=== PATIENT | male | born 1940 | race Caucasian/White ===

== ENCOUNTER → 2018-09-29 15:37 | Outpatient (CLI) | payer MEDICARE, OTHER, SELFPAY ==
--- NOTE | 2018-09-29 15:41 | DI.RAD.S_ITS ---
PROCEDURE: XR HAND RT MIN 3V INDICATIONS: thumb pain x 1month post fall. TECHNIQUE: 3 views of the hand(s) acquired. COMPARISON: None. FINDINGS: Bones: No fractures or dislocations. Carpal bones are normally aligned. No suspicious bony lesions. Small osseous densities are noted volar to the first carpal row. There is osteopenia. Mild to moderate degenerative joint disease is present at the triscaphe joint, first metacarpal joint and multiple interphalangeal joints. Soft tissues: No suspicious soft tissue calcifications. IMPRESSION: 1. No definitive fractures. 2. Small osseous densities volar to the first carpal row, most likely secondary to old injury or degenerative changes. If there is focal pain and tenderness in the area and clinical suspicion for pathology is high, advanced imaging such as CT or MRI is suggested for further evaluation. 3. Mild degenerative joint disease. 4. Osteopenia. Dictated by: Wayne Bryant M.D. on 09/29/2018 at 16:11 Approved by: Wayne Bryant M.D. on 09/29/2018 at 16:16
== END ==
PROVIDERS: Visit Provider Physician Assistant
DX: M79.644 Pain in right finger(s) (principal); M19.041 Primary osteoarthritis, right hand; M19.031 Primary osteoarthritis, right wrist; M85.841 Other specified disorders of bone density and structure, right hand
CPT/HCPCS: 73130

== ENCOUNTER 2019-02-04 12:46 | Emergency (ER) | payer MEDICARE, OTHER, SELFPAY ==
[2019-02-04 12:50] VITALS: BP 224/86; PULSE 51; RESP 20; TEMP 36.7; O2SAT 100; BMI 20.7
[2019-02-04] MEDS: PROPARACAINE 0.5% OPHTH SOL 1 DROPS EYE-BOTH (13:19)
--- NOTE | 2019-02-04 13:30 | DI.CT.S_ITS ---
PROCEDURE: CT HEAD/BRAIN WO CON INDICATIONS: right sided headache with vision changes for 2 weeks TECHNIQUE: Noncontrast 4.5 mm thick angled axial sections acquired from the foramen magnum to the vertex, with coronal and sagittal reformats. For radiation dose reduction, the following was used: automated exposure control, adjustment of mA and/or kV according to patient size. COMPARISON: None. FINDINGS: Image quality: Diagnostic. CSF spaces: Basal cisterns are patent. No extra-axial fluid collections. Ventricles are mildly prominent. Brain: No midline shift. No intracranial masses or hemorrhage. Parsons-white matter interface is normal. Subtle areas of low attenuation are seen within the periventricular white matter of the supratentorial brain. Skull and face: Calvarium and visualized facial bones are intact, without suspicious lesions. Sinuses: Visualized sinuses and mastoids are clear. IMPRESSION: 1. No acute intracranial hemorrhage. 2. Mild chronic small vessel ischemic changes and parenchymal volume loss. Dictated by: Tio Chang M.D. on 02/04/2019 at 13:01 Approved by: Tio Chang M.D. on 02/04/2019 at 13:03
--- NOTE | 2019-02-04 13:34 | ED_ITS ---
HPI - Headache General Chief Complaint: Headache Stated Complaint: pressure and headache in lt eye/surg 2wks ago Time Seen by Provider: 02/04/19 12:50 Source: patient Mode of arrival: ambulatory Limitations: no limitations History of Present Illness HPI Narrative: Patient is a 78-year-old male who presents with right eye pain. He had cataract surgery 2 weeks ago and Charly fill with Dr. Paz he says he had some pain and discomfort afterwards he had a follow-up appointment he was told that he had a retinal hemorrhage however he has had persistent ongoing pain and blurriness. His eye now looks injected. He has a right-sided headache as well with significantly elevated blood pressure. He says he is supposed to take 3 blood pressure pills but has not taken any. He has no numbness tingling or weakness no difficulty speaking or facial droop. He has no chest pain or shortness no nausea or vomiting. MD Complaint: headache and other (right eye pain) Location: right Related Data Home Medications Medication Instructions Recorded Confirmed oxycodone 10 mg tablet,crush 10 mg PO Q12H 09/29/18 09/29/18 resistant,extended release 12 hr oxycodone 5 mg tablet 5 mg PO Q4-6H PRN 09/29/18 09/29/18 Allergies Allergy/AdvReac Type Severity Reaction Status Date / Time aspirin AdvReac Severe Ulcer Verified 09/29/18 15:23 Review of Systems Review of Systems ROS Unobtainable: All systems reviewed & are unremarkable except as noted in HPI and below Constitutional Constitutional: Denies chills, Denies fever(s), Reports headache(s), Denies lethargy and Denies weakness Eyes Eyes: Reports as per HPI, Reports seeing flashes and Reports photophobia ENT Ears, Nose, Mouth, and Throat: Reports headache(s) Cardiovascular Cardiovascular: Denies chest pain, Denies irregular heart rhythm, Denies l ightheadedness, Denies palpitations and Denies orthopnea Gastrointestinal Gastrointestinal: Denies abdominal pain, Denies change in bowel habits, Denies diarrhea, Denies nausea and Denies vomiting Genitourinary Genitourinary: Denies hematuria, Denies flank pain, Denies urinary incontinence and Denies urinary urgency Musculoskeletal Musculoskeletal: Denies back pain, Denies muscle weakness, Denies numbness and Denies tingling Integumentary/Breasts Skin/Breast: Denies pruritus, Denies erythema, Denies rash and Denies wounds Neurologic Neurologic: Reports headache(s), Denies numbness, Denies tingling and Denies weakness Endocrine Endocrine: Denies palpitations [facility] [place] Medical History Diabetes (Acute) Hypertension (Acute) Social History Smoking Status: Former smoker Social History Smoking Status: Former smoker Exam Initial Vital Signs Initial Vital Signs: Vital Signs Temperature 98.1 F 02/04/19 12:50 Pulse Rate 51 L 02/04/19 12:50 Respiratory Rate 20 02/04/19 12:50 Blood Pressure 224/86 H 02/04/19 12:50 Pulse Oximetry 100 02/04/19 12:50 GENERAL: Alert elderly male HEENT: Head atraumatic,EOMI, pupils reactive, face symmetric, moist mucous membranes EYES: Left eye pressure 45 mg of mercury, right eye pressure 23 mg of mercury. Both eye stained with fluorescein no dye uptake. Right eye is injected but no gross discharge. He is able to distinguish number of fingers held up in front of his eye. But he states it is blurry. Good red reflex. CARDIOVASCULAR: Regular rate and rhythm without murmurs, rubs or gallops. RESPIRATORY: Breath sounds equal bilaterally, no wheezes rales or rhonchi. ABDOMEN: Soft, nontender. Normoactive bowel sounds all 4 quadrants. No guardi ng or rebound. EXTREMITIES: Normal range of motion, no clubbing or edema. Neurovascularly intact NEUROLOGICAL: Alert and oriented x4.Normal gait and speech. Cranial nerves II through XII grossly intact. Good [id number], good [id number], strength equal bilaterally, no dysarthria or aphasia, sensation in tact to soft touch bilaterally, no visual changes, no facial droop SKIN: Warm, dry, no laceration, no petechiae, no rashes or lesions. Scores NIH Stroke Scale Level of Conciousness: Alert, keenly responsive Ask month/age: Answers both questions correctly. Open/close eyes, close hand: Performs both tasks correctly Best gaze horizontal: Normal Visual villalta: No visual loss Facial palsy: Normal symetrical movement Left arm drift: No drift for full 10 sec Right arm drift: No drift for full 10 sec Left leg drift: No drift for full 10 sec Right leg drift: No drift for full 10 sec Limb ataxia: Absent Sensory on face/arms/legs: Normal, no sensory loss Best language: No aphasia, normal Dysarthria: Normal Extinction or inattention: No abnormality Total NIH Stroke scale score: 0 Course Orders Ordered: ED Orders 02/04/19 13:30 CT head/brain wo con Stat 02/04/19 14:10 Complete Blood Count AUTO DIFF Stat Comprehensive Metabolic Panel Stat Partial Thromboplastin Time Stat Prothrombin Time INR Stat Discontinued Medications Sodium Chloride (Normal Saline 0.9%) 1,000 mls @ 150 mls/hr IV CONT SUNDAY Proparacaine HCl (Parcaine 0.5% Ophth Margareth) 1 drops EYE-BOTH NOW ONE Stop: 02/04/19 13:11 Last Admin: 02/04/19 13:19 Dose: 1 1000units Documented by: KBROTEM Consultations Consultation #1: Dr. cardona ophthalmology has been updated on patient's symptoms test results agrees to see patient in her office immediately following discharge. Time: 14:43 Vital Signs Vital signs: Vital Signs - 8 hr 02/04/19 12:50 02/04/19 14:00 Temperature 98.1 F Pulse Rate 51 L 50 L Respiratory Rate 20 13 Blood Pressure 224/86 H Blood Pressure [Left Arm] 161/55 H Pulse Oximetry 100 100 MDM - Headache Lab Data Attestation: I reviewed the patient's lab results. Result diagrams: 02/04/19 14:10 02/04/19 14:10 Labs: Lab Results 02/04/19 02/04/19 02/04/19 Range/Units 14:10 14:10 14:10 WBC 9.4 (4.5-11.0) X10^3/uL RBC 4.88 (4.5-5.9) X10^6/uL Hgb 15.0 (13.5-17.5) g/dL Hct 43.0 (41-53) % MCV 88.0 (80-100) fL MCH 30.7 (26-34) PG MCHC 34.9 (30-36) % RDW 12.9 (11.6-14.8) % Plt Count 127 L (150-400) X10^3/uL Neut % (Auto) 73.8 (50-75) % Lymph % (Auto) 16.1 L (25-40) % Hart % (Auto) 7.3 (3-14) % Eos % (Auto) 2.1 (2-4) % Baso % (Auto) 0.7 (0-2) % Neut # (Auto) 7000 (0936-6501) /uL Lymph # (Auto) 1500 (3080-6761) /uL Hart # (Auto) 700 (0-900) /uL Eos # (Auto) 200 (0-450) /uL Baso # (Auto) 100 (0-100) /uL PT 12.5 (10.1-12.7) SECONDS INR 1.1 (0.9-1.3) APTT 38 H (26.4-36.2) SECONDS Sodium 139 (137-145) mmol/L Potassium 3.7 (3.4-5.1) mmol/L Chloride 100 (98-107) mmol/L Carbon Dioxide 28 (22-32) mmol/L BUN 13 (9-20) mg/dL Creatinine 0.90 (0.66-1.25) mg/dL Estimated GFR > 60.0 (>60) mL/min BUN/Creatinine Ratio 14.4 (6-22) Glucose 177 H (80-110) mg/dL Calcium 9.6 (8.4-10.2) mg/dL Total Bilirubin 0.7 (0.2-1.3) mg/dL AST 16 L (17-59) IU/L ALT 16 L (21-72) IU/L Alkaline Phosphatase 79 (38-126) U/L Total Protein 7.1 (6.3-8.2) g/dL Albumin 4.4 (3.5-5.0) g/dL Globulin 2.7 (1.7-4.1) g/dL Albumin/Globulin Ratio 1.6 (1.0-2.8) MDM Narrative Medical decision making narrative: The patient blood pressure initially quite elevated he states he has not taken his Coreg or other blood pressure medications. Initial concern for possible stroke versus closed angle glaucoma or other complications. Pressure in left eye initially elevated and was done twice, both times in the 40s. Right eye pressure was in the 20s highest at 23. No dye uptake to suggest corneal abrasion. Patient will be discharged for ophthalmology evaluation. The patient's blood pressure did come down slightly to a systolic of 180, strongly recommended the patient take his blood pressure medications Discharge Plan Departure Patient Disposition: Home Clinical Impression: Acute pain in right eye Hypertension Qualifiers: Hypertension type: unspecified Qualified Code(s): I10 - Essential (primary) hypertension Discharge Date/Time: 02/04/19 15:05 Instructions: DI for Malignant Hypertension Activity Restrictions/Additional Instructions: GO directly to [place] [facility] You need to take her blood pressure medication as prescribed this may be contributing to her headache and visual changes. Return to emergency department if he should have any new or worsening symptoms such as weakness numbness tingling speech difficulty or any other problems. Prescriptions: No Action oxycodone 5 mg tablet 5 mg PO Q4-6H PRNRF: 0 oxycodone [OxyContin] 10 mg tablet,oral only,ext.rel.12 hr 10 mg PO Q12H RF: 0 Referrals: Melva Cardona MD [Physician] - Jesus Macario MD [Primary Care Provider] -
[2019-02-04 14:00] VITALS: BP 161/55; PULSE 50; RESP 13; O2SAT 100
[2019-02-04 14:25] LABS: Add Manual Diff / Slide Review NO; Basophils Absolute Auto 100 /uL (0-100); Basophils Percent Auto 0.7 % (0-2); Eosinophils Absolute Auto 200 /uL (0-450); Eosinophils Percent Auto 2.1 % (2-4); Lymphocytes Absolute Auto 1500 /uL (1100-4500); Lymphocytes Percent Auto 16.1 % (25-40); Mean Corpuscular HGB Conc 34.9 % (30-36); Mean Corpuscular Hemoglobin 30.7 PG (26-34); Monocytes Absolute Auto 700 /uL (0-900); Monocytes Percent Auto 7.3 % (3-14); Neutrophils Absolute Auto 7000 /uL (1500-7000); Neutrophils Percent Auto 73.8 % (50-75); Platelet Count 127 X10^3/uL (150-400); Red Blood Cell Count 4.88 X10^6/uL (4.5-5.9); Red Cell Distribution Width 12.9 % (11.6-14.8); White Blood Cell Count 9.4 X10^3/uL (4.5-11.0)
[2019-02-04 14:26] LABS: INR 1.1 (0.9-1.3); Prothrombin Time 12.5 SECONDS (10.1-12.7)
[2019-02-04 14:28] LABS: PTT Partial Thromboplastin Tim 38 SECONDS (26.4-36.2)
[2019-02-04 14:30] LABS: Alanine Aminotransferase 16 IU/L (21-72); Albumin 4.4 g/dL (3.5-5.0); Albumin Globulin Ratio 1.6 (1.0-2.8); Alkaline Phosphatase 79 U/L (38-126); Aspartate Aminotransferase 16 IU/L (17-59); BUN Creatinine Ratio 14.4 (6-22); Bilirubin Total 0.7 mg/dL (0.2-1.3); Blood Urea Nitrogen 13 mg/dL (9-20); Calcium 9.6 mg/dL (8.4-10.2); Carbon Dioxide 28 mmol/L (22-32); Chloride 100 mmol/L (98-107); Estimated Glomerular Filt Rate > 60.0 mL/min (>60); Globulin 2.7 g/dL (1.7-4.1); Glucose 177 mg/dL (80-110); HEMOLYSIS < 15 (0-50); Potassium 3.7 mmol/L (3.4-5.1); Sodium 139 mmol/L (137-145); Total Protein 7.1 g/dL (6.3-8.2)
== END 2019-02-04 15:05 | disposition home or self-care (01) ==
PROVIDERS: Emergency Provider Emergency Medicine; PCP Family Medicine
DX: H57.11 Ocular pain, right eye (principal); I10 Essential (primary) hypertension
CPT/HCPCS: 36591; 70450; 80053; 85025; 85610; 85730; 99283; 99284

== ENCOUNTER 2019-02-09 19:15 | Emergency (ER) | payer MEDICARE, OTHER, SELFPAY ==
--- NOTE | 2019-02-09 19:34 | ED.GENADULT ---
HPI - General Adult General Chief complaint: Extremity Problem,Nontraumatic Stated complaint: right knee pain,trouble walking Time Seen by Provider: 02/09/19 19:27 Source: patient Mode of arrival: wheelchair Limitations: no limitations History of Present Illness HPI narrative: 78-year-old male here for evaluation of right knee pain and also posterior knee pain. Symptoms have been going on for the past day or so. I have been worsening. Has having problems walking. Related Data Home Medications Medication Instructions Recorded Confirmed oxycodone 10 mg tablet,crush 10 mg PO Q12H 09/29/18 09/29/18 resistant,extended release 12 hr oxycodone 5 mg tablet 5 mg PO Q4-6H PRN 09/29/18 09/29/18 Allergies Allergy/AdvReac Type Severity Reaction Status Date / Time aspirin AdvReac Severe Ulcer Verified 09/29/18 15:23 Review of Systems Constitutional Constitutional: Denies fever(s), Denies headache(s) and Denies weakness ENT Ears, Nose, Mouth, and Throat: Denies headache(s) and Denies disequilibrium Cardiovascular Cardiovascular: Denies chest pain and Denies dyspnea Respiratory Respiratory: Denies dyspnea Gastrointestinal Gastrointestinal: Denies abdominal pain Musculoskeletal Comments: Right knee pain Integumentary/Breasts Skin/Breast: Denies lesions and Denies rash Neurologic Neurologic: Denies confusion, Denies headache(s), Denies disequilibrium and Denies weakness Psychiatric Psychiatric: Denies confusion Hematologic/Lymphatic Hematologic/Lymphatic: Denies easy bleeding and Denies easy bruising PFSH Medical History Diabetes (Acute) Hypertension (Acute) Social History Smoking Status: Former smoker Exam Initial Vital Signs Initial Vital Signs: Vital Signs Temperature 97.8 F 02/09/19 19:36 Pulse Rate 44 L 02/09/19 19:36 Respiratory Rate 18 02/09/19 19:36 Blood Pressure 176/58 H 02/09/19 19:36 Pulse Oximetry 100 02/09/19 19:36 Resp Effort & Inspection: normal respiratory effort Cardio Pulses: dorsalis pedis present on the right Skin Lesions: no lesions Rashes: no rashes Neuro Sensory Exam: no sensory deficits noted Extrem Other: Patient with tenderness to palpation on the medial and lateral hamstrings and also on the proximal calf muscle. He also has tenderness to palpation behind the right knee. Psych Appearance: grossly normal and well kempt Procedures Orthopedic Splinting/Casting Injury #1: Side: right Lower Extremity Injury Location: knee Lower Extremity Immobilizer: Nathan wrap Post splinting neuro exam: intact Post splinting vascular exam: intact Placed by: Nursing Course Orders Ordered: ED Orders 02/09/19 19:33 XR knee RT 1to2V Stat 02/09/19 19:34 US periph venous low extrem rt Stat Discontinued Medications Hydromorphone HCl (Dilaudid) 1 mg IM NOW ONE Stop: 02/09/19 21:29 Last Admin: 02/09/19 21:40 Dose: 1 mg Documented by: MARY Vital Signs Vital signs: Vital Signs - 8 hr 02/09/19 19:36 02/09/19 21:43 Temperature 97.8 F Pulse Rate 44 L 43 L Respiratory Rate 18 15 Blood Pressure 176/58 H Blood Pressure [Right Arm] 162/51 H Pulse Oximetry 100 100 Medical Decision Making Imaging Data X-ray knee: Radiologist's impression: [address] [address] XRay Report Signed Patient: Willard Dickey R#: [id number] : 3Acct:[id number] Age/Sex: 78 / MDate of Service: 02/09/19 Loc: ED Accession Number: [id number] Procedure: XR knee RT 1to2V Ordering Provider: Kristopher Goodwin D.O. PROCEDURE: XR KNEE RT 1TO2V INDICATIONS: pain no injury TECHNIQUE: 2 views of the knee were acquired. COMPARISON: None. FINDINGS: Bones: Partially visualized intramedullary sapphire. No fractures or dislocations. No suspicious bony lesions. Severe tricompartmental right knee osteoarthritis. Soft tissues: No joint effusion. No suspicious soft tissue calcifications. IMPRESSION: Severe tricompartmental osteoarthritis. Dictated by: Sosa Reinoso MD, PhD on 02/09/2019 at 19:52 Approved by: Sosa Reinoso MD, PhD on 02/09/2019 at 19:53 Venous US: Radiologist's impression: [address] [address] Ultrasound Report Signed Patient: Willard Dickey [facility]#: [id number] : 1941Acct:[id number] Age/Sex: 78 / MDate of Service: 02/09/19 Loc: ED Accession Number: [id number] Procedure: US periph venous low extrem rt Ordering Provider: Kristopher Goodwin D.O. PROCEDURE: US PERIPH VENOUS LOW EXTREM RT INDICATIONS: POSTERIOR KNEE AND LEG PAIN TECHNIQUE: Real-time imaging, as well as color and pulse Doppler interrogation, were performed of the lower extremity deep veins from the inguinal ligament to the popliteal fossa. COMPARISON: None. FINDINGS: The common femoral, femoral and popliteal veins are normally compressible, and free of intraluminal thrombus. Color and pulse Doppler demonstrate normal phasic intraluminal flow. There is normal augmentation response to distal compression maneuver. IMPRESSION: No evidence of deep vein thrombosis involving the right lower extremity. Dictated by: Sosa Reinoso MD, PhD on 02/09/2019 at 21:07 Approved by: Sosa Reinoso MD, PhD on 02/09/2019 at 21:07 [facility] Narrative Medical decision making narrative: No signs of a DVT. He does have severe osteoarthritis on the x-rays however no fractures. He is neurovascularly intact. I do suspect that his pain is musculoskeletal. There is no signs of infection. Low suspicion for septic joint. He potentially has a hamstring injury however his symptoms could also be secondary to his severe osteoarthritis. He is on chronic pain medication at home. Improved with medication here in the ER. Nathan bandage was placed for comfort. He was given care instructions return precautions. He will talk with his primary doctor about further workup. He expressed understanding and agreement with plan. Discharge Plan Departure Patient Disposition: Home Clinical Impression: Acute pain of right knee Discharge Date/Time: 02/09/19 22:42 Instructions: Arthritis (Alternative Therapy) Activity Restrictions/Additional Instructions: I do recommend you talk with your primary provider about physical therapy. You can also call your orthopedic provider to discuss other options to treat your arthritis. Return to the emergency department for any new or worsening symptoms Prescriptions: No Action oxycodone 5 mg tablet 5 mg PO Q4-6H PRNRF: 0 oxycodone [OxyContin] 10 mg tablet,oral only,ext.rel.12 hr 10 mg PO Q12H RF: 0 Referrals: Jesus Macario MD [Primary Care Provider] -
[2019-02-09 19:36] VITALS: BP 176/58; PULSE 44; RESP 18; TEMP 36.6; O2SAT 100; BMI 21.2
[2019-02-09] MEDS: HYDROMORPHONE 1 MG INJ IM (21:40)
[2019-02-09 21:43] VITALS: BP 162/51; PULSE 43; RESP 15; O2SAT 100
== END 2019-02-09 22:42 | disposition home or self-care (01) ==
PROVIDERS: Emergency Provider Emergency Medicine; PCP Family Medicine
DX: M25.561 Pain in right knee (principal)
CPT/HCPCS: 73560; 93971; 96372; 99282; 99284; J1170

== ENCOUNTER 2020-04-10 15:17 | Emergency (ER) | payer MEDICARE, OTHER, SELFPAY ==
[2020-04-10 15:38] VITALS: BP 202/84; PULSE 50; RESP 16; TEMP 37.1; O2SAT 99
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
--- NOTE | 2020-04-10 17:22 | DI.RAD.S_ITS ---
PROCEDURE: XR FEMUR LT MIN 2V INDICATIONS: pain, fall, injury to knees TECHNIQUE: 2 views of the femur were acquired. COMPARISON: [facility], CR, XR KNEE RT 3V, 04/10/2020, 15:58. [facility], CR, XR KNEE LT 3V, 04/10/2020, 15:58. FINDINGS: Bones: No fractures or dislocations. No suspicious bony lesions. Knee arthroplasty hardware is seen. Age-appropriate bony degenerative changes are seen. Soft tissues: No suspicious soft tissue calcifications or masses. IMPRESSION: No displaced femur fracture can be seen by plain film. Dictated by: Loyd Emery M.D. on 04/10/2020 at 16:48 Approved by: Loyd Emery M.D. on 04/10/2020 at 16:49
[2020-04-10] MEDS: OXYCODONE/ACETAMINOPHEN 5/325 TABLET 2 TAB PO (17:41)
[2020-04-10 17:43] VITALS: PULSE 57; O2SAT 93
[2020-04-10 17:45] VITALS: BP 177/87; PULSE 54; O2SAT 98
[2020-04-10] MEDS: TET,DIPH,PERTUSS(ACELL),VAC/PF 0.5 ML SYRINGE IM (19:14)
[2020-04-10] MEDS: BACITRACIN OINT 0.9 GM PCKT 2 APPLIC TOP (19:15)
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
== END 2020-04-10 19:34 | disposition home or self-care (01) ==
PROVIDERS: Emergency Provider Nurse Practitioner Family; PCP Family Medicine
DX: S80.811A Abrasion, right lower leg, initial encounter (principal); M25.561 Pain in right knee; M25.562 Pain in left knee; V19.9XXA Pedal cyclist (driver) (passenger) injured in unspecified traffic accident, initial encounter; Z23 Encounter for immunization
CPT/HCPCS: 73552; 73562; 90471; 99284; 90715

== ENCOUNTER → 2024-07-25 08:14 | Outpatient (CLI) | payer MEDICARE, OTHER, SELFPAY ==
--- NOTE | 2024-07-25 08:16 | DI.US.S_ITS ---
PROCEDURE: US ABDOMEN COMPLETE INDICATIONS: CKD G3B; URINARY RETENTION; FATTY LIVER DISEASE TECHNIQUE: Real-time scanning was performed of the abdominal and retroperitoneal organs, with image documentation. COMPARISON: None. FINDINGS: Liver: Liver is normal in size and demonstrates a septated cyst versus cluster of cysts that measure up to 1 cm within the right liver posteriorly. Gallbladder: Trace mobile sludge and stones can be seen within the gallbladder. The largest stone measures up to 16 mm. Areas of gallbladder wall echogenicity can be seen. The gallbladder wall is not thickened, measuring 3 mm or less. No specific pericholecystic fluid is seen. The sonographic Yuan sign is negative. Biliary ducts: Intrahepatic bile ducts are non-dilated. Extrahepatic bile duct caliber measures 3 mm. Normal is 6-7 mm or less in diameter, or 10 mm or less post-cholecystectomy. Pancreas: The pancreas is not well seen. Spleen: Spleen is normal in size and homogeneous in echotexture. Kidneys: Evaluation of the kidneys is limited by bowel gas and patient positioning. Kidneys are normal in size and echotexture. Right kidney measures 10.3 cm long; left kidney measures 9.7 cm long. Within the left kidney inferiorly, there is a potential hyperechoic focus that measures up to 5 mm. Within the inferior left kidney, there is an apparent 5 mm cyst. Aorta: Visualized aorta is normal in caliber at less than 3 cm. Atherosclerotic plaque is seen. Iliacs: Proximal common iliac arteries are normal in caliber at less than 2.5 cm. IVC: Intrahepatic inferior vena cava is patent. Miscellaneous: No free abdominal fluid. The prevoid bladder volume is 103 cc. The postvoid bladder volume is 11 cc. Neither of the ureteral jets are well seen. The prostate measures 4.1 x 5.1 x 5.2 cm. IMPRESSION: No hydronephrosis can be seen. Within the inferior left kidney, there is a possible 5 mm echogenic focus, which may be related to a stone versus artifact. Mobile sludge and stones can be seen within the gallbladder. No additional sonographic signs of cholecystitis are seen. A mild postvoid residual, 11 cc. No significant liver abnormality is seen. Additional findings: Septated liver cyst versus cluster of cysts Possible left renal cyst, 5 mm Potential gallbladder wall adenomyomatosis Pancreas not well seen Dictated by: Loyd Emery M.D. on 07/25/2024 at 11:42 Approved by: Loyd Emery M.D. on 07/25/2024 at 11:47
--- NOTE | 2024-07-25 08:17 | DI.US.S_ITS ---
PROCEDURE: US PERIPH VENOUS LOW EXTREM BI INDICATIONS: EDEMA TECHNIQUE: Real-time imaging, as well as color and pulse Doppler interrogation, were performed of the deep veins of both legs from the inguinal ligament to the popliteal fossa, with documentation of the visualized calf veins. COMPARISON: [facility], US, US ABDOMEN COMPLETE, 07/25/2024, 8:43. FINDINGS: Right: The common femoral, femoral, popliteal, and the visualized calf veins are normally compressible, and free of intraluminal thrombus. Color and pulse Doppler demonstrate normal phasic intravascular flow. There is normal augmentation response to distal compression maneuver. Left: The common femoral, femoral, popliteal, and the visualized calf veins are normally compressible, and free of intraluminal thrombus. Color and pulse Doppler demonstrate normal phasic intravascular flow. There is normal augmentation response to distal compression maneuver. Soft tissue edema can be seen involving the popliteal on both sides as well as at the level of the ankles. IMPRESSION: No findings of deep venous thrombosis in either lower extremity. Dictated by: Loyd Emery M.D. on 07/25/2024 at 11:47 Approved by: Loyd Emery M.D. on 07/25/2024 at 11:49
== END ==
PROVIDERS: Referring Provider Internal Medicine Nephrology; Visit Provider Internal Medicine Nephrology
DX: N18.32 Chronic kidney disease, stage 3b (principal); K76.0 Fatty (change of) liver, not elsewhere classified; K82.8 Other specified diseases of gallbladder; K80.20 Calculus of gallbladder without cholecystitis without obstruction; I70.0 Atherosclerosis of aorta; R33.9 Retention of urine, unspecified
CPT/HCPCS: 76700; 93970

== ENCOUNTER 2024-08-06 19:10 | Inpatient (IN) | payer MEDICARE, OTHER, SELFPAY ==
[2024-08-06] VITALS (13 sets, daily range): BP systolic 184–280; BP diastolic 60–100; PULSE 45–60; RESP 15–22; TEMP 36.6; O2SAT 97–99; BMI 25.8
--- NOTE | 2024-08-06 20:13 | ED.EXTPRO ---
HPI - Extremity Problem General Chief complaint: Extremity Problem,Nontraumatic Stated complaint: Pain in R Calf, Can't Walk On It Time Seen by Provider: 08/06/24 19:30 Source: patient Mode of arrival: Wheelchair History of Present Illness HPI Narrative: 83-year-old male with history of congestive heart failure, no longer taking Aldactone medication, believes he is still taking hydralazine and amlodipine and carvedilol medications, having bilateral lower extremity swelling and pain to both legs. No redness to his skin, no ulcers or wounds. No fevers or chills. Related Data Home Medications Medication Instructions Recorded Confirmed amlodipine 5 mg tablet 5 mg PO BID 04/10/20 08/06/24 carvedilol 25 mg tablet 25 mg PO BID 04/10/20 08/06/24 chlorthalidone 25 mg tablet 25 mg PO DAILY 08/06/24 08/06/24 hydralazine 25 mg tablet 25 mg PO 4XD 08/06/24 08/06/24 Allergies Allergy/AdvReac Type Severity Reaction Status Date / Time aspirin AdvReac Severe Ulcer Verified 08/06/24 19:15 Patient History Medical History (Updated 08/07/24 @ 00:27 by Anand Adam MD) Diabetes Hypertension Surgical History Knee joint replacement status H/O knee surgery Social History Smoking Status: Former smoker Smoking Status: Former smoker alcohol intake frequency: 0-2 drinks per day Exam Narrative Exam Narrative: GENERAL: Well-developed patient, in mild distress. HEAD: Atraumatic. Normocephalic. EYES: Pupils equal round and reactive. Extraocular motions intact. No scleral icterus. No injection or drainage. ENT: Nose without bleeding, purulent drainage. Throat without erythema, tonsillar hypertrophy or exudate. Airway patent. NECK: Trachea midline. Non tender CARDIOVASCULAR: Regular rate and rhythm without murmurs, gallops, or rubs. RESPIRATORY: Clear to auscultation. Breath sounds equal bilaterally. No wheezes, rales, or rhonchi. GASTROINTESTINAL: Abdomen soft, non-tender, nondistended. EXTREMITIES: As bilateral lower extremity edema 2+ from feet to both knees. BACK: Nontender without deformity or crepitance. No flank tenderness. NEURO: AOx3. Motor functions grossly nonfocal SKIN: No rash or erythema of visible areas Initial Vital Signs Initial Vital Signs: Vital Signs Temperature 97.9 F 08/06/24 19:15 Pulse Rate 52 L 08/06/24 19:15 Respiratory Rate 17 08/06/24 19:15 Blood Pressure 239/100 H 08/06/24 19:15 Pulse Oximetry 98 08/06/24 19:15 Oxygen Delivery Method Room Air 08/06/24 19:15 Course Orders Ordered: ED Orders 08/06/24 20:20 BNP [NT-proBNP (BNP-Adult 18+)] Stat Complete Blood Count AUTO DIFF Stat Comprehensive Metabolic Panel Stat Lipase Stat Troponin & CK Cardiac Panel Stat 08/06/24 20:23 XR chest 1V Stat EKG-12 Lead Stat 08/06/24 21:33 Urine Microscopic Stat 08/06/24 23:52 BMP [Basic Metabolic Panel] Stat Hydralazine HCl (Hydralazine 20 Mg/Ml Vial) 10 mg IV Q6HR PRN PRN Reason: Hypertension SBP >160 Last Admin: 08/07/24 00:01 Dose: 10 mg Discontinued Medications Hydralazine HCl (Hydralazine 20 Mg/Ml Vial) 5 mg IV NOW ONE Stop: 08/06/24 20:23 Last Admin: 08/06/24 20:31 Dose: 5 mg Documented By: NEMO Vital Signs Vital signs: Vital Signs - 8 hr 08/06/24 19:15 08/06/24 20:25 08/06/24 20:31 Temperature 97.9 F Pulse Rate 52 L 60 48 L Respiratory Rate 17 20 Blood Pressure 239/100 H 278/60 H 280/60 H Pulse Oximetry 98 97 Oxygen Delivery Method Room Air Room Air 08/06/24 20:58 08/06/24 21:01 08/06/24 21:09 Temperature Pulse Rate 53 L 49 L 51 L Respiratory Rate 22 20 Blood Pressure 226/92 H 204/83 H 204/83 H Pulse Oximetry 99 99 Oxygen Delivery Method Room Air 08/06/24 21:30 08/06/24 21:31 08/06/24 22:01 Temperature Pulse Rate 56 L 57 L 46 L Respiratory Rate 20 20 21 Blood Pressure 210/90 H 184/77 H Pulse Oximetry 98 Oxygen Delivery Method 08/06/24 22:31 08/06/24 23:30 08/06/24 23:31 Temperature Pulse Rate 46 L 45 L 47 L Respiratory Rate 18 19 15 Blood Pressure 198/83 H Pulse Oximetry 98 98 98 Oxygen Delivery Method Room Air Room Air 08/06/24 23:31 08/06/24 23:55 08/06/24 23:55 Temperature Pulse Rate 53 L Respiratory Rate 17 Blood Pressure 198/83 H 230/92 H Pulse Oximetry 99 Oxygen Delivery Method 08/07/24 00:00 08/07/24 00:00 08/07/24 00:01 Temperature Pulse Rate 50 L 51 L Respiratory Rate 18 Blood Pressure 223/88 H 223/88 H Pulse Oximetry 99 Oxygen Delivery Method MDM - Extremity (Nontraumatic) Lab Data Lab results narrative: White blood cell count 9500, hemoglobin 12.9, platelets [id number]. Sodium 137, potassium 5.7, chloride 110, serum CO2 17. BUN 54 with creatinine 2.15, elevated from previous study but a few years ago. Glucose 175. Liver functions unremarkable. Lipase normal. Troponin negative. BNP 3730. 08/06/24 20:20 08/07/24 00:05 Labs: Lab Results 08/06/24 08/06/24 08/07/24 Range/Units 20:20 21:33 00:05 WBC 9.5 (4.5-11.0) X10^3/uL RBC 4.20 L (4.5-5.9) X10^6/uL Hgb 12.9 L (13.5-17.5) g/dL Hct 38.0 L (41-53) % MCV 90.5 (80-100) fL MCH 30.8 (26-34) PG MCHC 34.0 (30-36) % RDW 14.0 (11.6-14.8) % Plt Count 144 L (150-400) X10^3/uL Neut % (Auto) 79.8 H (50-75) % Lymph % (Auto) 11.6 L (25-40) % Foster % (Auto) 6.0 (3-14) % Eos % (Auto) 1.9 L (2-4) % Baso % (Auto) 0.7 (0-2) % Neut # (Auto) 7600 H (9515-1755) /uL Lymph # (Auto) 1100 (5125-1077) /uL Foster # (Auto) 600 (0-900) /uL Eos # (Auto) 200 (0-450) /uL Baso # (Auto) 100 (0-100) /uL Sodium 137 137 (137-145) mmol/L Potassium 5.7 H 5.2 H (3.4-5.1) mmol/L Chloride 110 H 111 H (98-107) mmol/L Carbon Dioxide 17 L 15 L (22-32) mmol/L BUN 54 H 56 H (9-20) mg/dL Creatinine 2.15 H 2.15 H (0.66-1.25) mg/dL Estimated GFR 30 L 30 L (>60) mL/min BUN/Creatinine Ratio 25.1 H 26.0 H (6-22) Glucose 175 H 132 H (80-110) mg/dL Calcium 9.1 8.9 (8.4-10.2) mg/dL Total Bilirubin 0.2 (0.2-1.3) mg/dL AST 24 (17-59) IU/L ALT 20 (<50) IU/L Alkaline Phosphatase 75 (38-126) U/L Total Creatine Kinase 46 L (55-170) U/L Troponin I 0.014 (0.01-0.034) ng/mL NT-Pro-B Natriuret Pep 3730 H (<450) pg/mL Total Protein 7.0 (6.3-8.2) g/dL Albumin 4.1 (3.5-5.0) g/dL Globulin 2.9 (1.7-4.1) g/dL Albumin/Globulin Ratio 1.4 (1.0-2.8) Lipase 200 (23-300) U/L Urine RBC 0-1/hpf (0-5/HPF) Urine WBC None seen (0-5/HPF) Ur Squamous Epith Cells None seen (0-5/HPF) Urine Bacteria None seen (None) Ur Culture Indicated? Cult not indicated Vol Urine Centrifuged 10ml (spun) Urine Dip Bedside Urine Glucose Negative Bedside Urine Bilirubin - Negative Bedside Urine Ketone - Negative Urine Specific Pennock 1.025 Bedside Urine Occult Blood +/- Bedside Urine pH 6.0 Bedside Urine Protein +++ 300 Bedside Urine Urobilinogen - Negative Bedside Urine Nitrite - Negative Bedside Urine Leukocytes - Negative Esterase Imaging Data Chest x-ray: Radiologist's Impression: [address] [address] XRay Report Signed Patient: Willard Dickey MR#: [id number] : 1940 Acct:[id number] Age/Sex: 83 / M Date of Service: 08/06/24 Loc: ED Accession Number: [id number] Procedure: XR chest 1V Ordering Provider: Anand Adam MD PROCEDURE: XR CHEST 1V INDICATIONS: chest pain TECHNIQUE: One view of the chest was acquired. COMPARISON: None. FINDINGS AND IMPRESSION: No dense airspace disease or pleural effusion on this single view study. Normal heart size. Aortic calcifications. Degenerative osseous changes. Dictated by: Rhett Romero M.D. on 08/06/2024 at 20:52 Approved by: Rhett Romero M.D. on 08/06/2024 at 20:52 ECG Data Attestation EKG: I personally reviewed and interpreted this ECG as follows: Interpretation: Sinus bradycardia with first-degree AV block, MS 276, ventricular response rate 48. No obvious ST segment elevation or depression changes. QRS 114, QTC 394. MDM Narrative Medical decision making narrative: 83-year-old male with history of hypertension and CHF, taking amlodipine and carvedilol and hydralazine, recently discontinued Aldactone, with increased swelling to both legs that is quite uncomfortable. Afebrile, SIRS screen negative. Speaking in full sentences, lungs clear. Screening labs sent. IV Lasix 40 mg. 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 Avoid beta-vidya, avoid clonidine. Subsequent blood pressures improved. EKG with sinus bradycardia and first-degree AV block, no obvious ischemic changes. Troponin negative. Chest x-ray without gross fluid overload, no infiltrates. See radiology report. Lab data: White blood cell count 9500, hemoglobin 12.9, platelets [id number]. Sodium 137, potassium 5.7, chloride 110, serum CO2 17. BUN 54 with creatinine 2.15, elevated from previous study but a few years ago. Glucose 175. Liver functions unremarkable. Lipase normal. Troponin negative. BNP 3730. Comparison labs: prior Chem panel 01/2019 showed BUN 13 with creatinine 0.9. No other comparisons. No other BNP results in our system. Lasix given prior, mild potassium elevation noted, we will add oral Lokelma. Trial of ambulation, patient feels too weak to ambulate with a walker, usually is able to ambulate with a walker. Consider admission, patient agrees, we will contact hospitalist. 0015, case discussed with hospitalist Dr. Simpson who accepts patient for admission to observation Critical Care Time Critical Care Time Critical Care Time: Yes Total Critical Care Time: 35 Attestation: The high probability of a clinically significant, sudden or life threatening deterioration of the [cardiopulmonary, renal] system(s) required my full and direct attention, intervention and personal management. The aggregate critical care time was [35] minutes. This time is in addition to time spent performing reported procedures but includes the following: [x] Data Review and interpretation [x] Patient assessment and monitoring of vital signs [x] Documentation [x] Medication orders and management Discharge Plan Departure Patient Disposition: Admitted as Observation Clinical Impression: Generalized weakness, Edema of both lower extremities, Congestive heart failure, Renal insufficiency, Bradycardia, Hyperkalemia Admit Date/Time: 08/07/24 00:17 Admit Provider: Moises Ferrera
--- NOTE | 2024-08-06 20:23 | DI.RAD.S_ITS ---
PROCEDURE: XR CHEST 1V INDICATIONS: chest pain TECHNIQUE: One view of the chest was acquired. COMPARISON: None. FINDINGS AND IMPRESSION: No dense airspace disease or pleural effusion on this single view study. Normal heart size. Aortic calcifications. Degenerative osseous changes. Dictated by: Rhett Romero M.D. on 08/06/2024 at 20:52 Approved by: Rhett Romero M.D. on 08/06/2024 at 20:52
[2024-08-06] MEDS: HYDRALAZINE 20 MG/ML VIAL 5 MG IV (20:31)
--- NOTE | 2024-08-06 20:31 | EKG_ITS ---
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
[2024-08-06 20:32] LABS: Add Manual Diff / Slide Review NO; Basophils Absolute Auto 100 /uL (0-100); Basophils Percent Auto 0.7 % (0-2); Eosinophils Absolute Auto 200 /uL (0-450); Eosinophils Percent Auto 1.9 % (2-4); Hemoglobin 12.9 g/dL (13.5-17.5); Lymphocytes Absolute Auto 1100 /uL (1100-4500); Lymphocytes Percent Auto 11.6 % (25-40); Mean Corpuscular Hemoglobin 30.8 PG (26-34); Mean Corpuscular Volume 90.5 fL (80-100); Monocytes Absolute Auto 600 /uL (0-900); Neutrophils Absolute Auto 7600 /uL (1500-7000); Neutrophils Percent Auto 79.8 % (50-75); Platelet Count 144 X10^3/uL (150-400); White Blood Cell Count 9.5 X10^3/uL (4.5-11.0)
[2024-08-06 20:43] LABS: Alanine Aminotransferase 20 IU/L (<50); Albumin 4.1 g/dL (3.5-5.0); Albumin Globulin Ratio 1.4 (1.0-2.8); Alkaline Phosphatase 75 U/L (38-126); Aspartate Aminotransferase 24 IU/L (17-59); BUN Creatinine Ratio 25.1 (6-22); Bilirubin Total 0.2 mg/dL (0.2-1.3); Blood Urea Nitrogen 54 mg/dL (9-20); Calcium 9.1 mg/dL (8.4-10.2); Carbon Dioxide 17 mmol/L (22-32); Chloride 110 mmol/L (98-107); Creatine Kinase 46 U/L (55-170); Estimated Glomerular Filt Rate 30 mL/min (>60); Globulin 2.9 g/dL (1.7-4.1); Glucose 175 mg/dL (80-110); HEMOLYSIS < 15 (0-50); Lipase 200 U/L (23-300); Sodium 137 mmol/L (137-145)
[2024-08-06 20:44] LABS: Potassium 5.7 mmol/L (3.4-5.1)
[2024-08-06 20:52] LABS: NT-proBNP (BNP-Adult 18+) 3730 pg/mL (<450)
[2024-08-06 20:55] LABS: Troponin I 0.014 ng/mL (0.01-0.034)
[2024-08-06 22:17] LABS: Bacteria Urine None Seen; Culture Indicated Urine Cult Not Indicated; RBC Urine 0-1/HPF (0-5/HPF); Squamous Epithelial Cell Urine None Seen (0-5/HPF); Urine Volume 10mL (spun); WBC Urine None Seen (0-5/HPF)
[2024-08-06] MEDS: SODIUM ZIRCONIUM CYCLOSILICATE 10 GM POWD.PACK PO (22:58)
--- NOTE | 2024-08-06 23:50 | PC.NURSE ---
Pt failed ambulation trial. Attempted to stand up from [facility]. Pt was not able to stand even with assistance. Provider Bernarda Sims notified.
[2024-08-07] VITALS (12 sets, daily range): BP systolic 167–223; BP diastolic 44–88; PULSE 50–67; RESP 14–21; TEMP 36.1–36.4; O2SAT 96–99; BMI 25.8
[2024-08-07] MEDS: HYDRALAZINE 20 MG/ML VIAL 10 MG IV ×2 (00:01→02:43)
[2024-08-07 00:35] LABS: Blood Urea Nitrogen 56 mg/dL (9-20); Calcium 8.9 mg/dL (8.4-10.2); Carbon Dioxide 15 mmol/L (22-32); Chloride 111 mmol/L (98-107); Estimated Glomerular Filt Rate 30 mL/min (>60); Glucose 132 mg/dL (80-110); HEMOLYSIS < 15 (0-50); Potassium 5.2 mmol/L (3.4-5.1); Sodium 137 mmol/L (137-145)
--- NOTE | 2024-08-07 02:05 | DI.ECHO.S_ITS ---
[facility] : : [address] : [place] [address] : : [id number] : : Phone: [phone] Echocardiogram Report + :Name: ABDIRAHMAN GRADY Study Date: 08/07/2024 Height: 68 in : :[facility] ReadingLocation: Weight: 170 lb : : Gender: Male BSA: 1.9 m2 : :: 1940 Age: 83 yrs BP: 167/57 mmHg: :Reason For Study: CONGESTIVE HEART FAILURE : :Ordering Physician: SHELL : :NYDIA PENN Performed By: Aki Reese : :Referring: NYDIA CAGE : + Interpretation Summary Normal left ventricle size with ejection fraction 65-70%. Diastolic parameters suggest a relaxation abnormality of the left ventricle, consistent with probable normal filling pressures. The aortic valve is mildly calcified. Mild aortic regurgitation. Mild mitral regurgitation. Procedure: A two-dimensional transthoracic echocardiogram with color flow and Doppler was performed. The study quality was technically difficult. Most of the acoustic windows were suboptimal, but the best imaging was obtained from the apical window. There is no prior echocardiogram noted for this patient. The patient was in normal sinus rhythm during the exam. Left Ventricle: The left ventricle is normal in size. There is normal left ventricular wall thickness. There is no ventricular septal defect visualized. The ejection fraction is estimated to be 65-70%. There are no focal wall motion abnormalities. Diastolic parameters suggest a relaxation abnormality of the left ventricle, consistent with probable normal filling pressures. Right Ventricle: The right ventricle is normal in size and function. Atria: The left atrial size is normal. Right atrial size is normal. There is no Doppler evidence for an atrial septal defect. Mitral Valve: The mitral valve leaflets are mildly calcified. There is mild mitral regurgitation. Aortic Valve: The aortic valve is trileaflet. The aortic valve is mildly calcified. There is mild aortic regurgitation. Tricuspid Valve: The tricuspid valve leaflets are thin and pliable. No tricuspid regurgitation. Pulmonic Valve: The pulmonic valve is not well visualized. There is no pulmonic valvular regurgitation. Great Vessels: The aortic root is normal size. The ascending aorta could not be visualized. The pulmonary artery is normal size. The IVC is of normal diameter and collapses greater than 50% with a sniff. This suggests a low right atrial pressure of 3 mm Hg. Pericardium/ Pleura There is no pericardial effusion. There is no pleural effusion. MMode/2D Measurements & Calculations LVIDd: 4.3 cm LVOT diam: 2.0 cm LVIDs: 3.1 cm Ao root diam: 2.9 cm FS: 27.3 % IVSd: 1.3 cm LVPWd: 1.3 cm LV hill. diameter/BSA (cm/m^2): 2.2 LV sys. diameter/BSA (cm/m^2): 1.6 LA A2 area: 16.3 cm2 RA long axis: 3.9 cm LA A4 area: 18.8 cm2 RA area: 11.1 cm2 LA length (vol): 5.3 cm RA vol: 26.7 ml LA vol: 49.0 ml RA : 14.0 ml/m2 LA vol index: 25.7 ml/m2 IVC diam: 1.9 cm RVD1 (basal): 4.2 cm RVD2 (mid): 3.3 cm TAPSE: 3.3 cm Doppler Measurements & Calculations Ao V2 max: 210.0 cm/sec LVOT Max Feliz: 113.3 cm/sec Ao V2 mean: 152.1 cm/sec LV V1 max P.1 mmHg Ao max P.6 mmHg LV V1 VTI: 30.6 cm Ao mean P.3 mmHg CARLOS(I,D): 1.8 cm2 Ao V2 VTI: 53.8 cm CARLOS(V,D): 1.7 cm2 sev ratio: 0.57 CARLOS indexed to BSA (cm^2/m^2): 0.96 MV E max feliz: 99.2 cm/sec PA V2 max: 127.9 cm/sec MV A max feliz: 132.9 cm/sec PA V2 mean: 93.8 cm/sec MV E/A: 0.75 PA mean P.1 mmHg Med Peak E' Feliz: 4.0 cm/sec PA pr(Accel): -13.5 mmHg E/E' med: 24.9 Lat Peak E' Feliz: 6.6 cm/sec E/E' lat: 15.1 E/e' average: 20.0 MV dec time: 0.31 sec SV(LVOT): 98.3 ml Electronically signed by: Emma Godfrey on Reading Physician:08/07/2024 04:42 PM
--- NOTE | 2024-08-07 02:06 | P.HP_ITS ---
History of Present Illness History of Present Illness Date Patient Seen: 08/07/24 Time Patient Seen: 01:30 Chief complaint: Pain in R Calf, Can't Walk On It Narrative: 83 y/o with PMH of HTN and CHF, came to ED complaining on b/l lower leg swelling and pain, more on the right. His SBP was 200 ~ 250 for the entire ED visit. He denies chest pain but has exertional dyspnea. He doesn't know his medications. Admitted with hypertensive urgency, CHF exacerbation. [facility] Medical History (Updated 08/07/24 @ 06:44 by Moises Simpson MD) Diabetes Hypertension Surgical History Knee joint replacement status H/O knee surgery Social History household members: spouse Smoking Status: Former smoker alcohol intake: former Meds Home Medications and Allergies Home Medications Medication Instructions Recorded Confirmed Type amlodipine 5 mg tablet 5 mg PO BID 04/10/20 08/06/24 History carvedilol 25 mg tablet 25 mg PO BID 04/10/20 08/06/24 History chlorthalidone 25 mg tablet 25 mg PO DAILY 08/06/24 08/06/24 History hydralazine 25 mg tablet 25 mg PO 4XD 08/06/24 08/06/24 History Allergies Allergy/AdvReac Type Severity Reaction Status Date / Time aspirin AdvReac Severe Ulcer Verified 08/06/24 19:15 Review of Systems Review of Systems Narrative: Poor historian. Obvious memory deficits. - swollen and painful legs - exertional dyspnea - generalized weakness Exam Vital Signs (past 8 hours): - 08/06/24 19:15 08/06/24 20:25 08/06/24 20:31 Temperature 97.9 F Pulse Rate 52 L 60 48 L Respiratory Rate 17 20 Blood Pressure 239/100 H 278/60 H 280/60 H Pulse Oximetry 98 97 Oxygen Delivery Method Room Air Room Air Oxygen Flow Rate 08/06/24 20:58 08/06/24 21:01 08/06/24 21:09 Temperature Pulse Rate 53 L 49 L 51 L Respiratory Rate 22 20 Blood Pressure 226/92 H 204/83 H 204/83 H Pulse Oximetry 99 99 Oxygen Delivery Method Room Air Oxygen Flow Rate 08/06/24 21:30 08/06/24 21:31 08/06/24 22:01 Temperature Pulse Rate 56 L 57 L 46 L Respiratory Rate 20 20 21 Blood Pressure 210/90 H 184/77 H Pulse Oximetry 98 Oxygen Delivery Method Oxygen Flow Rate 08/06/24 22:31 08/06/24 23:30 08/06/24 23:31 Temperature Pulse Rate 46 L 45 L 47 L Respiratory Rate 18 19 15 Blood Pressure 198/83 H Pulse Oximetry 98 98 98 Oxygen Delivery Method Room Air Room Air Oxygen Flow Rate 08/06/24 23:31 08/06/24 23:55 08/06/24 23:55 Temperature Pulse Rate 53 L Respiratory Rate 17 Blood Pressure 198/83 H 230/92 H Pulse Oximetry 99 Oxygen Delivery Method Oxygen Flow Rate 08/07/24 00:00 08/07/24 00:00 08/07/24 00:01 Temperature Pulse Rate 50 L 51 L Respiratory Rate 18 Blood Pressure 223/88 H 223/88 H Pulse Oximetry 99 Oxygen Delivery Method Oxygen Flow Rate 08/07/24 00:21 08/07/24 00:29 08/07/24 00:42 Temperature Pulse Rate 56 L 65 Respiratory Rate 21 Blood Pressure 203/88 H Pulse Oximetry 99 Oxygen Delivery Method Room Air Room Air Oxygen Flow Rate 08/07/24 01:00 Temperature 97.3 F L Pulse Rate 61 Respiratory Rate 16 Blood Pressure 212/57 H Pulse Oximetry 97 Oxygen Delivery Method Oxygen Flow Rate 0 Oxygen Delivery Method Room Air Oxygen Flow Rate 0 Narrative Exam Narrative: General - in no distress CVS - bradycardic, regular, 2+ b/l leg edema, w/o JVD, w/o rales RS - CTA b/l GI - not distended Neuro / Psych - w/o deficits, forgetful Objective ECG Impression: Sinus bradycardia 48, 1st degree AV block Imaging Chest x-ray: My impression: Without cardiomegaly or infiltrates Radiologist's impression: No dense airspace disease or pleural effusion on this single view study. Normal heart size. Aortic calcifications. Degenerative osseous changes. Venous US: Radiologist's impression: No findings of deep venous thrombosis in either lower extremity. Labs 08/07/24 04:52 08/07/24 04:52 Labs: Laboratory Results - last 24 hr 08/06/24 08/06/24 08/07/24 20:20 21:33 00:05 WBC 9.5 RBC 4.20 L Hgb 12.9 L Hct 38.0 L MCV 90.5 MCH 30.8 MCHC 34.0 RDW 14.0 Plt Count 144 L Neut % (Auto) 79.8 H Lymph % (Auto) 11.6 L Montgomery % (Auto) 6.0 Eos % (Auto) 1.9 L Baso % (Auto) 0.7 Neut # (Auto) 7600 H Lymph # (Auto) 1100 Montgomery # (Auto) 600 Eos # (Auto) 200 Baso # (Auto) 100 Sodium 137 137 Potassium 5.7 H 5.2 H Chloride 110 H 111 H Carbon Dioxide 17 L 15 L BUN 54 H 56 H Creatinine 2.15 H 2.15 H Estimated GFR 30 L 30 L BUN/Creatinine Ratio 25.1 H 26.0 H Glucose 175 H 132 H Calcium 9.1 8.9 Total Bilirubin 0.2 AST 24 ALT 20 Alkaline Phosphatase 75 Total Creatine Kinase 46 L Troponin I 0.014 NT-Pro-B Natriuret Pep 3730 H Total Protein 7.0 Albumin 4.1 Globulin 2.9 Albumin/Globulin Ratio 1.4 Lipase 200 Urine RBC 0-1/hpf Urine WBC None seen Ur Squamous Epith Cells None seen Urine Bacteria None seen Ur Culture Indicated? Cult not indicated Vol Urine Centrifuged 10ml (spun) Assessment & Plan Assessment and plan (1) Hypertensive urgency: Status: Acute (2) Acute on chronic heart failure: Status: Acute (3) CKD (chronic kidney disease): Status: Acute (4) Hyperkalemia: Status: Acute Assessment & Plan narrative: HTN Urgency / CHF - likely causing CHF exacerbation - Coreg 25 mg bid - Norvasc 5 mg bid - Chlorthalidone 25 mg daily - hydralazine 25 mg qid - prn hydralazine IV - echocardiogram pending CKD / JAMAL? / Hyperkalemia - not clear what is basic renal function at the time of admission - monitored electrolytes - had Lokelma x 1 DVT prophylaxis - heparin Time-Based Coding :: [TOTAL MINUTES] spent with patient and on the chart (including review of chart, obtaining history, exam, reviewing outside data, placing orders, documenting exam and treatment plan, and counseling patient) on [DATE].
[2024-08-07] MEDS: CHLORTHALIDONE 25 MG TABLET PO ×2 (02:42→08:48)
[2024-08-07] MEDS: AMLODIPINE 5 MG TABLET PO ×3 (02:43→21:14)
[2024-08-07 05:08] LABS: Add Manual Diff / Slide Review NO; Basophils Absolute Auto 100 /uL (0-100); Basophils Percent Auto 0.5 % (0-2); Eosinophils Absolute Auto 200 /uL (0-450); Eosinophils Percent Auto 1.6 % (2-4); Hematocrit 36.9 % (41-53); Hemoglobin 12.6 g/dL (13.5-17.5); Lymphocytes Absolute Auto 1400 /uL (1100-4500); Lymphocytes Percent Auto 11.7 % (25-40); Mean Corpuscular HGB Conc 34.2 % (30-36); Mean Corpuscular Hemoglobin 30.6 PG (26-34); Mean Corpuscular Volume 89.5 fL (80-100); Monocytes Absolute Auto 700 /uL (0-900); Monocytes Percent Auto 5.6 % (3-14); Neutrophils Absolute Auto 9500 /uL (1500-7000); Neutrophils Percent Auto 80.6 % (50-75); Platelet Count 139 X10^3/uL (150-400); Red Blood Cell Count 4.12 X10^6/uL (4.5-5.9); Red Cell Distribution Width 13.7 % (11.6-14.8); White Blood Cell Count 11.8 X10^3/uL (4.5-11.0)
[2024-08-07 05:19] LABS: BUN Creatinine Ratio 25.8 (6-22); Blood Urea Nitrogen 54 mg/dL (9-20); Calcium 9.1 mg/dL (8.4-10.2); Carbon Dioxide 14 mmol/L (22-32); Chloride 111 mmol/L (98-107); Estimated Glomerular Filt Rate 31 mL/min (>60); Glucose 143 mg/dL (80-110); HEMOLYSIS < 15 (0-50); Magnesium 2.3 mg/dL (1.6-2.3); Potassium 4.9 mmol/L (3.4-5.1); Sodium 136 mmol/L (137-145)
--- NOTE | 2024-08-07 08:10 | P.HP_ITS ---
History of Present Illness History of Present Illness Chief complaint: Pain in R Calf, Can't Walk On It Narrative: From night doctor: 83 y/o with PMH of HTN and CHF, came to ED complaining on b/l lower leg swelling and pain, more on the right. His SBP was 200 ~ 250 for the entire ED visit. He denies chest pain but has exertional dyspnea. He doesn't know his medications. Admitted with hypertensive urgency, CHF exacerbation. S: He recently started seeing Nephrology. He was taking clonidine transdermal and did not feel very good when he escalated this to a higher dose. He was nephrologists have him stopped this. The patient has been on oral antidiabetic diuretics at home. He had a pending EKG and echo later in the week which we will be doing inpatient. The patient denies any shortness a breath or chest pain. He does have leg edema. His blood pressures range in 170-190 range with very occasional systolics of 120. [facility] Medical History Diabetes Hypertension Surgical History Knee joint replacement status H/O knee surgery Social History household members: spouse Smoking Status: Former smoker alcohol intake: former Meds Home Medications and Allergies Home Medications Medication Instructions Recorded Confirmed Type amlodipine 5 mg tablet 5 mg PO BID 04/10/20 08/06/24 History carvedilol 25 mg tablet 25 mg PO BID 04/10/20 08/06/24 History chlorthalidone 25 mg tablet 25 mg PO DAILY 08/06/24 08/06/24 History hydralazine 25 mg tablet 25 mg PO 4XD 08/06/24 08/06/24 History Allergies Allergy/AdvReac Type Severity Reaction Status Date / Time aspirin AdvReac Severe Ulcer Verified 08/06/24 19:15 Review of Systems Review of Systems Narrative: All else reviewed and otherwise unremarkable except as noted in the history and physical. Exam Vital Signs (past 8 hours): - 08/07/24 00:21 08/07/24 00:29 08/07/24 00:42 Temperature Pulse Rate 56 L 65 Respiratory Rate 21 Blood Pressure 203/88 H Pulse Oximetry 99 Oxygen Delivery Method Room Air Room Air Oxygen Flow Rate 08/07/24 01:00 08/07/24 03:13 08/07/24 04:00 Temperature 97.3 F L 97.4 F L Pulse Rate 61 58 L 63 Respiratory Rate 16 16 Blood Pressure 212/57 H 191/59 H Pulse Oximetry 97 96 Oxygen Delivery Method Oxygen Flow Rate 0 0 Oxygen Delivery Method Room Air Oxygen Flow Rate 0 Narrative Exam Narrative: NAD, alert and oriented, fluent speech, calm. Normocephalic skull, EOMI, anicteric sclera, symmetric pupils. Oropharynx unremarkable, no droop. Neck supple, midline trachea, no adenopathy. Lungs clear, normal rate and effort. Heart regular, no murmur gallop or rub. Abdomen is soft, non distended and non tender. Extremities: bilateral leg pitting edema. Skin is free of rash or lesions. Joints are not swollen or deformed. Judgment appears to be normal. Objective ECG Impression: Sinus bradycardia with 1st degree AV block Left ventricular hypertrophy with repolarization abnormality ( [place] product ) Cannot rule out Inferior infarct , age undetermined Imaging Chest x-ray: Radiologist's impression: No dense airspace disease or pleural effusion on this single view study. Normal heart size. Aortic calcifications. Degenerative osseous changes. Venous US: Radiologist's impression: enous US: Radiologist's impression: No findings of deep venous thrombosis in either lower extremity. Labs 08/07/24 04:52 08/07/24 04:52 Labs: Laboratory Results - last 24 hr 08/06/24 08/06/24 08/07/24 20:20 21:33 00:05 WBC 9.5 RBC 4.20 L Hgb 12.9 L Hct 38.0 L MCV 90.5 MCH 30.8 MCHC 34.0 RDW 14.0 Plt Count 144 L Neut % (Auto) 79.8 H Lymph % (Auto) 11.6 L [place] % (Auto) 6.0 Eos % (Auto) 1.9 L Baso % (Auto) 0.7 Neut # (Auto) 7600 H Lymph # (Auto) 1100 [place] # (Auto) 600 Eos # (Auto) 200 Baso # (Auto) 100 Sodium 137 137 Potassium 5.7 H 5.2 H Chloride 110 H 111 H Carbon Dioxide 17 L 15 L BUN 54 H 56 H Creatinine 2.15 H 2.15 H Estimated GFR 30 L 30 L BUN/Creatinine Ratio 25.1 H 26.0 H Glucose 175 H 132 H Calcium 9.1 8.9 Magnesium Total Bilirubin 0.2 AST 24 ALT 20 Alkaline Phosphatase 75 Total Creatine Kinase 46 L Troponin I 0.014 NT-Pro-B Natriuret Pep 3730 H Total Protein 7.0 Albumin 4.1 Globulin 2.9 Albumin/Globulin Ratio 1.4 Lipase 200 Urine RBC 0-1/hpf Urine WBC None seen Ur Squamous Epith Cells None seen Urine Bacteria None seen Ur Culture Indicated? Cult not indicated Vol Urine Centrifuged 10ml (spun) 08/07/24 04:52 WBC 11.8 H RBC 4.12 L Hgb 12.6 L Hct 36.9 L MCV 89.5 MCH 30.6 MCHC 34.2 RDW 13.7 Plt Count 139 L Neut % (Auto) 80.6 H Lymph % (Auto) 11.7 L [place] % (Auto) 5.6 Eos % (Auto) 1.6 L Baso % (Auto) 0.5 Neut # (Auto) 9500 H Lymph # (Auto) 1400 [place] # (Auto) 700 Eos # (Auto) 200 Baso # (Auto) 100 Sodium 136 L Potassium 4.9 Chloride 111 H Carbon Dioxide 14 L BUN 54 H Creatinine 2.09 H Estimated GFR 31 L BUN/Creatinine Ratio 25.8 H Glucose 143 H Calcium 9.1 Magnesium 2.3 Total Bilirubin AST ALT Alkaline Phosphatase Total Creatine Kinase Troponin I NT-Pro-B Natriuret Pep Total Protein Albumin Globulin Albumin/Globulin Ratio Lipase Urine RBC Urine WBC Ur Squamous Epith Cells Urine Bacteria Ur Culture Indicated? Vol Urine Centrifuged Assessment & Plan Assessment & Plan narrative: 1. Hypertensive urgency, present on admission and active. - likely causing CHF exacerbation - Coreg 25 mg bid - Norvasc 5 mg bid - Chlorthalidone 25 mg daily - hydralazine 25 mg qid - prn hydralazine IV 2. Acute diastolic heart failure, present on admission and active. 3. Hyperkalemia, present on admission and improving. - not clear what is basic renal function at the time of admission - monitored electrolytes - had Lokelma x 1 4. Acute kidney injury on chronic kidney disease, present on admission and active. PLAN: Aggressive diuresis Monitor electrolytes EKG and echo We will discuss with Nephrology over the next day. BRANDY: 08/09, home. Full code. DVT prophylaxis - heparin Time-Based Coding :: 35 min spent with patient and on the chart (including review of chart, obtaining history, exam, reviewing outside data, placing orders, documenting exam and treatment plan, and counseling patient) on 08/07. Quality MIPS - Admit I confirm the patient?s Advance Care Plan is present, Code status is documented, Surrogate decision maker is in patient?s record [If Yes, STOP here]: Yes MIPS - Meds 'Current medications' to include all prescriptions, [id number] products, herbals, cannabis/cannabidiol products, and vitamin/mineral/dietary (nutritional) supplements. I have utilized all available resources to obtain, update, or review the patient?s current medications. [If Yes, STOP here]: Yes
[2024-08-07] MEDS: carvediloL 12.5 MG TABLET 25 MG PO ×2 (08:48→21:15)
[2024-08-07] MEDS: HEPARIN 5,000 UNIT/ML VIAL 5000 UNIT SUBCUT ×2 (08:48→21:15)
[2024-08-07] MEDS: HYDRALAZINE 25 MG TABLET PO ×3 (10:07→21:15)
[2024-08-07] MEDS: FUROSEMIDE 80 MG in SODIUM CHLORIDE 0.9% 50 ML 116 MG IV (12:22)
[2024-08-07] MEDS: SODIUM CHLORIDE 0.9% FLUSH 10 ML IV ×2 (12:31→21:16)
[2024-08-07] MEDS: SODIUM CHLORIDE 0.9% 250 ML 21 ML IV (12:31)
--- NOTE | 2024-08-07 14:05 | PT.IIE ---
Current Diagnoses Hyperkalemia (08/07/24) Hypertensive urgency (08/07/24) Heart failure, unspecified (08/07/24) Chronic kidney disease, unspecified (08/07/24) Surgical History (Last Reviewed 08/07/24 @ 08:11 by Camilo Paz MD) H/O knee surgery Knee joint replacement status Medical History (Last Reviewed 08/07/24 @ 08:11 by Camilo Paz MD) Diabetes Hypertension Physical Therapy Inpatient Evaluation/Re-Eval M1 PT/OT-IP Prior Functional Status Start: 08/07/24 12:55 Freq: NEEDED Status: Active Protocol: Document 08/07/24 13:34 MB (Rec: 08/07/24 14:05 MB [id number]) Medical Review Prior Functional Status Medical History Reviewed Yes Diet/Fluid Consistency Regular Communication Communicates needs Mobility and Gait Mod I with cane Activities of Daily Living and IADL's I with ADLs, lives with and daughter and pt and daughter look after pt's , pt does minimal driving Social History Household Members spouse,children Living Arrangements House Number of Floors (Floors) One Floor Number of Stairs To Enter/Railing? Ramp to enter Home Environment High Toilet,Walk in Shower Home Equipment Straight Cane,Shower Seat with Backrest,Hand Held Shower, Grab Bars In Shower Additional Social History Comment Transport chair, pt states he does not like walkers because he doesn't trust them, feels they will scoot out under him M2 PT-IP Current Condition Start: 08/07/24 12:55 Freq: NEEDED Status: Active Protocol: Document 08/07/24 13:34 MB (Rec: 08/07/24 14:05 MB [id number]) Physical Therapy Current Condition Current Condition Evaluation Date 08/07/24 Treatment Diagnosis Right calf pain, cannot walk on leg M3 PT-IP Subjective Start: 08/07/24 12:55 Freq: NEEDED Status: Active Protocol: Document 08/07/24 13:34 MB (Rec: 08/07/24 14:05 MB [id number]) Subjective Physical Therapy Visit Type Type Initial Evaluation Visit Start Time 13:34 Visit Stop Time 13:54 Number of 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 Therapy Pain Assessment Pain When Pain Assessed During Mobility Pain Present Pain Present Pain Reported Location Right leg Intensity 7 Scale Used Numeric (0 - 10) M4 PT-IP Mobility and Gait Start: 08/07/24 12:55 Freq: NEEDED Status: Active Protocol: Document 08/07/24 13:34 MB (Rec: 08/07/24 14:05 MB [id number]) PT-Bed Mobility Assessment Rolling Type of Rolling Roll to Left Level of Assist Standby Assistance Supine to Sit Supine to Sit Standby Assistance Scooting Scooting to Edge of Bed Standby Assistance Scooting Up and Down in Bed Standby Assistance PT-Transfer Assessment Comments Mobility Comments PT attempts to check orthostatics but pt states that he cannot tolerate trying to stand up d/t too much pain in right calf and it has been this way for at least a few days. BP and HR in LUE: supine 183/61, 64; sitting 167/57, 67 PT-Balance Assessment Sitting Balance and Reactions Static Sitting Balance Ability Good Dynamic Sitting Balance Ability Good M5 PT-IP Objective Assessments Start: 08/07/24 12:55 Freq: NEEDED Status: Active Protocol: Document 08/07/24 13:34 MB (Rec: 08/07/24 14:05 MB [id number]) Orientation Orientation/Cognition Level of Alertness Alert Orientation Name,Age,Birthday,Month,Date, Year,Day of Week,Place, Situation Language Function Ability No Deficits Noted,Receptive Aphasia Memory Description No Deficits Noted Gross Range of Motion Upper Extremity ROM Impairments NT Lower Extremity ROM Assessment Bilaterally Impaired Impairments B LE edema, left ankle fused and s/p TKR 1989 and limited range both joints, little tolerance to AP and any knee movement RLE as well Strength Lower Extremity Strength Assessment Bilaterally Impaired Comments Strength Comments Pt does not tolerate MMT either leg and he is profoundly weak B with post-op changes in left ankle and knee Coordination Assessment Gross Coordination Gross Coordination Impaired Sensation Assessment Sensation Gross Sensation Right LE Impaired,Left LE Impaired Sensation Description Hyperesthesia Other Assessments Other Other Assessments B LE edema and redness M7 PT-IP Assessment and Plan Start: 08/07/24 12:55 Freq: NEEDED Status: Active Protocol: Document 08/07/24 13:34 MB (Rec: 08/07/24 14:05 MB [id number]) PT Summary Assessment and Plan Potential Rehabilitation Potential Fair Status of Condition at Evaluation Evolving Summary Impairments Pain,ROM,Strength,Balance, Coordination,Sensation,Bed Mobility,Transfers,Gait, Activity Tolerance Progress Towards Goals Slow Progress due to Pain Assessment Summary Pt is an 83 y/o male adm with right calf pain and inability to stand. PT speaks with MD who states that US doppler was negative for DVT. Pt has history of left leg weakness and disuse after ankle fracture and fusion and TKR and he has decreased muscle mass left leg and B LE edema. Pt does not tolerate standing today and self-limits d/t pain in right proximal calf area. BP does drop supine to sit and the numbers con't to be quite high despite decrease. Recommend SNF at d/c . Goals Bed Mobility Goal Independent Transfer Goal Standby Assistance,Front Wheeled Walker Gait Goal Standby Assistance,Front Wheel Walker Gait Distance 50 Days to Meet Goals 5 Frequency of Treatment Frequency Of Treatment Once a Day Treatment Plan Physical Therapy Treatment Plan Bed Mobility Training,Transfer Training,Gait Training, Therapeutic Exercise,Balance Retraining,Discharge Planning, Hot or Cold Pack,Neuromuscular Re-ed,Coordination Retraining ,Manual Therapy Recommendations To Nursing Amount of Assist Needed Mechanical Lift Discharge Recommendations PT Discharge Recommendations SNF Rehab Transportation Needs at Discharge Wheelchair/Cabulance,Stretcher /Ambulance - PT assist x2 for OOB
--- NOTE | 2024-08-07 15:55 | CM.DANOTE ---
Patient is a 83 yo male who was admitted OBS Status on 08/07/24 for Hypertensive Urgency and CHF exacerbation. Pt has [employer] and [employer] for insurance and his PCP is not listed. EMR was reviewed. Per MD, pt with leg swelling and pain and failed ambulation trial and admitted for hypertensive urgency and CHF. Per PT, pt unable to stand today due to calf pain and currently recommending SNF. SW met bedside with pt and explained role and he confirms he lives at home in [place] with his and adult Dtr. Pt also has local supportive adult son. Pt states he and Dtr help to assist spouse at baseline. Pt has cane and still drives some. Son works for a local LTC facility as a SW and they are aware of HH if needed. Pt hopeful to avoid SNF and that his pain will be better controlled for plan of home with family and maybe referral to [facility]. Pt would like to wait until tomorrow to make a decision of discharge needs and referrals. Plan: SW to follow closely in the AM after further PT to determine SNF vs HH and if SNF pt would either need to meet criteria for Inpt Status if appropriate or would be Private Pay. SW to confirm pt's PCP as forgot to ask pt today. 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 Yes Advance Directives on File No History Provided By Patient,Family Member,Medical Record Has Patient been admitted in last 30 No days? Prior Living Arrangements House Household Members spouse,children Type of transporation used prior to Drives own vehicle admit Independent with ADL's Yes Is patient alert and oriented? Yes Caregiver for Another Yes: assists spouse DME Already Rented / Owned Cane Patient/Family Preference Alf Facility,Home with Home Health Comment SNF vs HH pending progress Barriers to Discharge Yes Comment currently OBS Status Discharge Plan Home with Home Health Community Services Physical Therapy,Occupational Therapy,Home Health Aid Transportation Arrangement Likely Dtr to transport if safe for home Additional Comment Pending further PT/OT Whiteboard Updated in Patient Room with Yes name and ext. # of Die Cutter Operator Review Status In Process Please Provide Date Initial DC 08/07/24 Assessment Was Performed Next Review Type Continued Stay Review
[2024-08-07] MEDS: ACETAMINOPHEN 325 MG TABLET 650 MG PO (21:15)
[2024-08-08] VITALS (12 sets, daily range): BP systolic 140–205; BP diastolic 43–68; PULSE 44–67; RESP 12–18; TEMP 35.9–36.3; O2SAT 97–100
[2024-08-08] MEDS: FUROSEMIDE 80 MG in SODIUM CHLORIDE 0.9% 50 ML 116 MG IV (00:47)
[2024-08-08] MEDS: HYDRALAZINE 25 MG TABLET PO ×4 (04:16→20:59)
[2024-08-08 05:06] LABS: Hematocrit 35.5 % (41-53); Hemoglobin 12.2 g/dL (13.5-17.5); Mean Corpuscular HGB Conc 34.5 % (30-36); Mean Corpuscular Hemoglobin 31.1 PG (26-34); Mean Corpuscular Volume 90.3 fL (80-100); Platelet Count 125 X10^3/uL (150-400); Red Blood Cell Count 3.93 X10^6/uL (4.5-5.9); Red Cell Distribution Width 13.8 % (11.6-14.8); White Blood Cell Count 9.3 X10^3/uL (4.5-11.0)
[2024-08-08 05:20] LABS: Blood Urea Nitrogen 59 mg/dL (9-20); Calcium 8.9 mg/dL (8.4-10.2); Carbon Dioxide 17 mmol/L (22-32); Chloride 106 mmol/L (98-107); Estimated Glomerular Filt Rate 27 mL/min (>60); Glucose 133 mg/dL (80-110); HEMOLYSIS < 15 (0-50); Hemoglobin A1C% w Est Avg Glu 5.8 % (4.0-6.0); Potassium 4.4 mmol/L (3.4-5.1); Sodium 133 mmol/L (137-145)
--- NOTE | 2024-08-08 07:12 | PM.PN.1 ---
Subjective Subjective Interval history: Chief complaint: Pain in R Calf, Can't Walk On It Summary: 83 y/o with PMH of HTN and CHF, came to ED complaining on b/l lower leg swelling and pain, more on the right. His SBP was 200 ~ 250 for the entire ED visit. He denies chest pain but has exertional dyspnea. He doesn't know his medications. Admitted with hypertensive urgency, CHF exacerbation. He recently started seeing Nephrology. He was taking clonidine transdermal and did not feel very good when he escalated this to a higher dose. He was nephrologists have him stopped this. The patient has been on oral antidiabetic diuretics at home. He had a pending EKG and echo later in the week which we will be doing inpatient. The patient denies any shortness a breath or chest pain. He does have leg edema. His blood pressures range in 170-190 range with very occasional systolics of 120. S: His leg edema is improved today, and his breathing is better. He was off from oxygen. He denies being dizzy with standing but his blood pressure is 140 systolic compared his usual of 170-180. His creatinine did bump from 2.09-2.36 with diuresis. Exam Vital Signs (past 8 hours): - 08/08/24 00:00 08/08/24 00:00 08/08/24 04:00 Temperature 97.4 F L 97.4 F L Pulse Rate 67 44 L Respiratory Rate 12 16 Blood Pressure 169/51 H 169/51 H 166/48 H Pulse Oximetry 100 97 Oxygen Flow Rate 0 0 Oxygen Delivery Method Room Air Oxygen Flow Rate 0 Narrative Exam Narrative: NAD, alert and oriented. Fluent speech. Lungs are clear, normal rate and effort. Heart is regular, no murmur gallop or rub. Abdomen is soft, non distended. Extremities are with 0-1+ edema. Objective ECG Impression: Sinus bradycardia with 1st degree AV block Left ventricular hypertrophy with repolarization abnormality ( [place] product ) Cannot rule out Inferior infarct , age undetermined Imaging Multiple studies: : Radiologist's impression: Chest x-ray: Radiologist's impression: No dense airspace disease or pleural effusion on this single view study. Normal heart size. Aortic calcifications. Degenerative osseous changes. Venous US: No findings of deep venous thrombosis in either lower extremity. ECHO: Normal left ventricle size with ejection fraction 65-70%. Diastolic parameters suggest a relaxation abnormality of the left ventricle, consistent with probable normal filling pressures. The aortic valve is mildly calcified. Mild aortic regurgitation. Mild mitral regurgitation. Labs 08/08/24 04:43 08/08/24 04:43 Labs: Laboratory Results - last 24 hr 08/08/24 04:43 WBC 9.3 RBC 3.93 L Hgb 12.2 L Hct 35.5 L MCV 90.3 MCH 31.1 MCHC 34.5 RDW 13.8 Plt Count 125 L Sodium 133 L Potassium 4.4 Chloride 106 Carbon Dioxide 17 L BUN 59 H Creatinine 2.36 H Estimated GFR 27 L BUN/Creatinine Ratio 25.0 H Glucose 133 H Hemoglobin A1c 5.8 Calcium 8.9 PFSH Medical History Diabetes Hypertension Surgical History Knee joint replacement status H/O knee surgery Social History household members: spouse and children Smoking Status: Former smoker alcohol intake: former Assessment & Plan Assessment & Plan narrative: 1. Hypertensive urgency, present on admission and improved. - likely causing CHF exacerbation - Coreg 25 mg bid - Norvasc 5 mg bid - Chlorthalidone 25 mg daily - hydralazine 25 mg qid - prn hydralazine IV -Monitor BP 2. Acute diastolic heart failure, present on admission and active. -Hold lasix 3/ and monitor Cr. 3. Hyperkalemia, present on admission and improving. - not clear what is basic renal function at the time of admission - monitored electrolytes - had Lokelma x 1 4. Acute kidney injury on chronic kidney disease, present on admission and active. -Hold lasix 3/11 and monitor Cr. PLAN: Hold diuresis Monitor Cr for another day. EKG and echo done. ECHO: Normal left ventricle size with ejection fraction 65-70%. Diastolic parameters suggest a relaxation abnormality of the left ventricle, consistent with probable normal filling pressures. The aortic valve is mildly calcified. Mild aortic regurgitation. Mild mitral regurgitation. BRANDY: 08/09, home + . Full code. DVT prophylaxis - heparin Time-Based Coding :: [TOTAL MINUTES] spent with patient and on the chart (including review of chart, obtaining history, exam, reviewing outside data, placing orders, documenting exam and treatment plan, and counseling patient) on [DATE].
[2024-08-08] MEDS: ACETAMINOPHEN 325 MG TABLET 650 MG PO ×2 (08:09→18:05)
[2024-08-08] MEDS: carvediloL 12.5 MG TABLET 25 MG PO (08:09)
[2024-08-08] MEDS: CHLORTHALIDONE 25 MG TABLET PO (08:09)
[2024-08-08] MEDS: AMLODIPINE 5 MG TABLET PO ×2 (08:09→20:59)
[2024-08-08] MEDS: HEPARIN 5,000 UNIT/ML VIAL 5000 UNIT SUBCUT ×2 (08:10→20:59)
[2024-08-08] MEDS: SODIUM CHLORIDE 0.9% FLUSH 10 ML IV ×2 (08:10→20:59)
--- NOTE | 2024-08-08 11:20 | DIET.CONS ---
Dietary Consultation Note Admission Date: 08/08/2024 10:12 Assessment: 83 y M admitted for CHF exacerbation and hypertensive urgency. Dietitian consulted for HF w/ recent weight gain. Met with pt at bedside. PMH of CKD and diet controlled DM (most recent A1c 5.8%) Reports daughters or he does food prep. Reads labels and watches for sodium, fiber, added sugars/CHO, and potassium in his food. Avoids adding salt to all food prepared in house. Goes out to eat <1x/wk. Diet recall: eggs and toast cottage cheese/soups homemade dinner Does do hotdogs/corn beef sandwich occasionally but reports these are treats and aware of sodium level. Ht: 172.72 cm Wt: 76 kg BMI: 25.8 UBW: no recent wt hx per EMR, pt unsure of UBW d/t fluid retention Last BM: 08/08/24 (08/08/24 07:00) MNA: 11 Humberto Score: 20 Diet: 08/07/24 Breakfast Heart Healthy Diet Diet Modifications: Nutrition Percent Meal Consumed 100% 08/08/24 09:10 Percent Meal Consumed 100% 08/07/24 18:00 Percent Meal Consumed 75% 08/07/24 09:34 Labs: RBC 3.93 X10^6/uL (4.5-5.9) L 08/08/24 04:43 Hgb 12.2 g/dL (13.5-17.5) L 08/08/24 04:43 Hct 35.5 % (41-53) L 08/08/24 04:43 Creatinine 2.36 mg/dL (0.66-1.25) H 08/08/24 04:43 Hemoglobin A1c 5.8 % (4.0-6.0) 08/08/24 04:43 NT-Pro-B Natriuret Pep 3730 pg/mL (<450) H 08/06/24 20:20 Nutrition Diagnosis: Decreased nutrient need (sodium) r/t heart failure aeb edema and conditions associated with dx/treatment that require decreased needs e.g. HF and CKD Interventions: -Provided educ and handout on reduced sodium needs, high sodium sources and alternatives, heart healthy diet, and reviewed label reading for sodium and goal sodium EER: <2,300mg/d sodium Monitoring/Evaluations: PO intakes, additional nutrition related questions/concerns Electronically Signed by: Gladis Cardona 08/08/24 11:20 Clinical Dietitian [address] [address]
--- NOTE | 2024-08-08 11:45 | PT.IPTN ---
Current Diagnoses Hyperkalemia (08/08/24) Hypertensive urgency (08/08/24) Heart failure, unspecified (08/08/24) Chronic kidney disease, unspecified (08/08/24) Physical Therapy Treatment Note M2 PT-IP Current Condition Start: 08/07/24 12:55 Freq: NEEDED Status: Active Protocol: Document 08/07/24 13:34 MB (Rec: 08/07/24 14:05 MB [id number]) Physical Therapy Current Condition Current Condition Evaluation Date 08/07/24 Treatment Diagnosis Right calf pain, cannot walk on leg M3 PT-IP Subjective Start: 08/07/24 12:55 Freq: NEEDED Status: Active Protocol: Document 08/08/24 11:45 AB (Rec: 08/08/24 13:35 AB [id number]) Subjective Physical Therapy Visit Type Type Treatment Note Visit Start Time 11:45 Visit Stop Time 12:00 Number of GLAZE GRINDER Visits 0 Physical Therapy Visit Comments Patient Comments agreeable to do PT Therapy Pain Assessment Pain When Pain Assessed During Weight Bearing Location Right leg Scale Used pain scale not stated Pain Behaviors Guarding Pain Management Techniques Distraction,Modification of Treatment,Re-positioning M4 PT-IP Mobility and Gait Start: 08/07/24 12:55 Freq: NEEDED Status: Active Protocol: Document 08/08/24 11:45 AB (Rec: 08/08/24 13:35 AB [id number]) PT-Bed Mobility Assessment Supine to Sit Supine to Sit Standby Assistance PT-Transfer Assessment Sit to and From Stand Sit to and from Stand Minimal Assistance,1 Person Assistance,Use of Upper Extremities Equipment Transfer Assistive Device Gait Belt,Front Wheeled Walker Orthotic/Prosthetic Devices or Brace: No Transfers Transfer Destination Chair Transfer Technique ambulated Transfer Ability Level of Assist Moderate Assistance,1 Person Assistance,Use of Upper Extremities Comments Mobility Comments pt in bed and agreeable to do PT. BP: 166/68. supine to sit SBA. able to sit on EOB SBA. no c/o dizziness. sit to stand min A and ambulated in room using FWW mod A and cues. pt agreed to sit on the chair. positioned pt on the chair. call light and table placed within reach. pt stated that he is afraid of using the FWW but agreed to use it. informed pt that if PT sees he is steady using a fWW then maybe will be able to assess using a SPC. during ambulation, pt stated that he is not ready to use a SPC. Gait Assessment Gait Gait Assistance Required: Moderate Assistance Distance (Feet) 25 Able to Maintain Weight Bearing Status Yes During Gait Assistive Devices Assistive Device Gait Belt,Front Wheeled Walker Orthotic/Prosthetic Devices or Brace: No Gait Deviations General Gait Pattern Decreased Stride Length, Decreased Feet Clearance,Step- to Gait Factors Limiting Gait Function Factors Limiting Gait Function Decreased Activity Tolerance, Decreased Strength,Limited Range of Motion,Pain,Poor Balance,Respiratory Distress M5 PT-IP Objective Assessments Start: 08/07/24 12:55 Freq: NEEDED Status: Active Protocol: Document 08/07/24 13:34 MB (Rec: 08/07/24 14:05 MB [id number]) Orientation Orientation/Cognition Level of Alertness Alert Orientation Name,Age,Birthday,Month,Date, Year,Day of Week,Place, Situation Language Function Ability No Deficits Noted,Receptive Aphasia Memory Description No Deficits Noted Gross Range of Motion Upper Extremity ROM Impairments NT Lower Extremity ROM Assessment Bilaterally Impaired Impairments B LE edema, left ankle fused and s/p TKR 1989 and limited range both joints, little tolerance to AP and any knee movement RLE as well Strength Lower Extremity Strength Assessment Bilaterally Impaired Comments Strength Comments Pt does not tolerate MMT either leg and he is profoundly weak B with post-op changes in left ankle and knee Coordination Assessment Gross Coordination Gross Coordination Impaired Sensation Assessment Sensation Gross Sensation Right LE Impaired,Left LE Impaired Sensation Description Hyperesthesia Other Assessments Other Other Assessments B LE edema and redness M6 PT-IP Treatment Start: 08/07/24 12:55 Freq: NEEDED Status: Active Protocol: Document 08/08/24 11:45 AB (Rec: 08/08/24 13:35 AB [id number]) Physical Therapy Treatment Education Education Provided Safety M7 PT-IP Assessment and Plan Start: 08/07/24 12:55 Freq: NEEDED Status: Active Protocol: Document 08/08/24 11:45 AB (Rec: 08/08/24 13:35 AB [id number]) PT Summary Assessment and Plan Potential Rehabilitation Potential Fair Summary Impairments Pain,ROM,Strength,Balance, Coordination,Sensation,Tone, Cognition,Bed Mobility, Transfers,Gait,Activity Tolerance Progress Towards Goals Slow Progress due to Pain,Slow Progress due to Activity Tolerance Assessment Summary pt requiring mod A with ambulation using a FWW and with decrease activity tolerance affecting mobility. pt lives with spouse and daughter. 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 pt will require SNF rehab to improve strength and mobility independence. Goals Bed Mobility Goal Independent Transfer Goal Standby Assistance,Front Wheeled Walker Gait Goal Standby Assistance,Front Wheel Walker Gait Distance 150 Days to Meet Goals 10 Frequency of Treatment Frequency Of Treatment Once a Day Treatment Plan Physical Therapy Treatment Plan Bed Mobility Training,Transfer Training,Gait Training, Therapeutic Exercise,Balance Retraining,Discharge Planning, Hot or Cold Pack,Neuromuscular Re-ed,Coordination Retraining ,Manual Therapy Recommendations To Nursing Amount of Assist Needed 1 Person Assist Discharge Recommendations PT Discharge Recommendations SNF Rehab Transportation Needs at Discharge Private Vehicle,Wheelchair/ Cabulance - PT assist 1PA
--- NOTE | 2024-08-08 15:06 | OT.IPNOTE ---
Initiated OT eval however pt having high BP while supine and nursing notified. 221/67 and 220/67 O2 on RA 98%. To check on pt tomorrow, no charge.
--- NOTE | 2024-08-08 18:20 | PC.NURSE ---
Progress Note Patient A&O, hypertension at times, resolves with scheduled medication, RA, complaint of LE discomfort pain, resolves with PRN Tylenol. Patient refusing CBG checks on finger, patient without history DM, MD made aware. MD at beside, patient's A1C WNL, per MD no further CBG checks, MD to discontinued SSI. Bed in low position, call light within reach. Will continue to monitor.
[2024-08-09] VITALS (14 sets, daily range): BP systolic 130–179; BP diastolic 45–75; PULSE 50–58; RESP 14–18; TEMP 35.8–36.6; O2SAT 96–99
[2024-08-09] MEDS: ACETAMINOPHEN 325 MG TABLET 650 MG PO ×4 (00:10→20:44)
[2024-08-09 05:06] LABS: Hematocrit 36.2 % (41-53); Hemoglobin 12.2 g/dL (13.5-17.5); Mean Corpuscular HGB Conc 33.7 % (30-36); Mean Corpuscular Hemoglobin 30.3 PG (26-34); Mean Corpuscular Volume 90.1 fL (80-100); Platelet Count 135 X10^3/uL (150-400); Red Blood Cell Count 4.02 X10^6/uL (4.5-5.9); Red Cell Distribution Width 13.9 % (11.6-14.8); White Blood Cell Count 9.1 X10^3/uL (4.5-11.0)
[2024-08-09 05:32] LABS: BUN Creatinine Ratio 26.2 (6-22); Blood Urea Nitrogen 69 mg/dL (9-20); Calcium 8.9 mg/dL (8.4-10.2); Carbon Dioxide 17 mmol/L (22-32); Chloride 104 mmol/L (98-107); Estimated Glomerular Filt Rate 24 mL/min (>60); Glucose 136 mg/dL (80-110); HEMOLYSIS < 15 (0-50); Potassium 4.4 mmol/L (3.4-5.1); Sodium 134 mmol/L (137-145)
[2024-08-09] MEDS: CHLORTHALIDONE 25 MG TABLET PO (08:16)
[2024-08-09] MEDS: AMLODIPINE 5 MG TABLET PO ×2 (08:16→20:37)
[2024-08-09] MEDS: HEPARIN 5,000 UNIT/ML VIAL 5000 UNIT SUBCUT ×2 (08:16→20:37)
[2024-08-09] MEDS: HYDRALAZINE 25 MG TABLET PO ×3 (08:20→20:38)
[2024-08-09] MEDS: SODIUM CHLORIDE 0.9% FLUSH 10 ML IV ×2 (10:08→20:41)
--- NOTE | 2024-08-09 13:45 | OT.IP.EVAL ---
Current Diagnoses Hyperkalemia (08/08/24) Hypertensive urgency (08/08/24) Heart failure, unspecified (08/08/24) Chronic kidney disease, unspecified (08/08/24) Past Medical History (Last Reviewed 08/07/24 @ 08:11 by Camilo Paz MD) Diabetes Hypertension Surgical History (Last Reviewed 08/07/24 @ 08:11 by Camilo Paz MD) H/O knee surgery Knee joint replacement status Occupational Therapy Inpatient Evaluation/Re-Eval M1 PT/OT-IP Prior Functional Status Start: 08/07/24 12:55 Freq: NEEDED Status: Active Protocol: Document 08/09/24 14:26 [facility] (Rec: 08/09/24 14:49 [facility] [id number]) Medical Review Prior Functional Status Medical History Reviewed Yes Diet/Fluid Consistency Regular Communication Communicates needs Mobility and Gait Mod I with cane Activities of Daily Living and IADL's I with ADLs, lives with and daughter and pt and daughter look after pt's , pt does minimal driving Social History Household Members spouse,children Living Arrangements House Number of Floors (Floors) One Floor Number of Stairs To Enter/Railing? Ramp to enter Home Environment High Toilet,Walk in Shower Home Equipment Straight Cane,Shower Seat with Backrest,Hand Held Shower, Grab Bars In Shower Additional Social History Comment Transport chair, pt states he does not like walkers because he doesn't trust them, feels they will scoot out under him M2 OT-IP Current Condition Start: 08/09/24 14:24 Freq: Status: Active Protocol: Document 08/09/24 14:26 [facility] (Rec: 08/09/24 14:49 [facility] [id number]) Occupational Therapy Current Condition Current Condition Evaluation Date 08/09/24 Treatment Diagnosis Acute CHF Diagnosis Onset Date 08/08/24 M3 OT- IP Subjective and Pain Start: 08/09/24 14:24 Freq: Status: Active Protocol: Document 08/09/24 14:26 [facility] (Rec: 08/09/24 14:49 [facility] [id number]) OT- Subjective Occupational Therapy Visit Type Type Initial Evaluation Visit Start Time 13:00 Visit Stop Time 13:45 Occupational Therapy Visit Comments Patient Comments Pt agreed to get up. Patient/Caregiver Goals Pt not certain what he wants to do. Pt wants to go home if able. OT Pain Assessment Pain When Pain Assessed At Rest Pain Present Pain Present Pain Reported Location bilat feet Intensity 6 M4 OT- IP ADL's Start: 08/09/24 14:24 Freq: Status: Active Protocol: Document 08/09/24 14:26 [facility] (Rec: 08/09/24 14:49 [facility] [id number]) OT [id number] General Evaluation Self-Feeding Ability Independent OT ADL-Grooming Comments OT Grooming Comments Not performed. OT ADL-Oral Care Comments Oral Care Comments Not performed. OT ADL-Dressing Comments OT Dressing Comments Pt able to slip his feet into slip on shoes. Pt will need assist for LB dressing when standing and for socks. OT ADL-Toileting Comments OT Toileting Comments Pt not having to go. OT ADL-Bathing Comments OT Bathing Comments Pt states not wanting to shower as so unsteady on his feet, to possibly try tomorrow if appropriate. M5 OT- IP IADL's Start: 08/09/24 14:24 Freq: Status: Active Protocol: Document 08/09/24 14:26 [facility] (Rec: 08/09/24 14:49 [facility] [id number]) OT-Instrumental Activities of Daily Living Deficits IADL Deficits Identified Deficits Home Safety Awareness Awareness of Need for Assistance at Home Good Awareness Ability to Problem Solve Emergency Able to Problem Solve Situations Medication Management Medication Management Comments Pt admits to not remembering to take his medications at times. Pt is a bit insistent on how he takes his medications. Pt not open to using a pill organizer. Money Management Money Management Comments Pt will benefit from assist. Meal Preparation Meal Preparation Caregiver Provides Assist Laborer Tanbark Laborer Tanbark Caregiver Provides Assist Driving Driving Concerns Identified Regarding Safety M6 OT- IP Functional Cognition Start: 08/09/24 14:24 Freq: Status: Active Protocol: Document 08/09/24 14:26 [facility] (Rec: 08/09/24 14:49 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 Pt able to recall 3/5 objects after time passed, not able to state 3 or 4 digit number backwards, and able to answer 3/4 questions right after paragraph read. Pt admit that his short term memory is not good and has to write things down often. Cognitive Comments Cognitive Assessment Comments Pt is very talkative and likes to reminisce of past events. OT- Vision and Hearing OT- Hearing Assessment OT- Hearing Assessment Hearing Impaired,Use of Hearing Aids OT- Vision Assessment Visual Acuity Glasses All The Time Visual Attentiveness WFL Occular Pursuits WFL M7 OT- IP Mobility and Balance Start: 08/09/24 14:24 Freq: Status: Active Protocol: Document 08/09/24 14:26 [facility] (Rec: 08/09/24 14:49 [facility] [id number]) OT- Bed Mobility Assessment Supine to Sit Supine to Sit Assist Independent OT-Transfer Assessment Sit to and From Stand Sit to and from Stand Maximum Assistance Transfers Transfer Ability Moderate Assistance Technique Transfer Destination Bed Transfer Technique Stand Step Pivot Devices Transfer Assistive Devices Gait Belt,Front Wheeled Walker Comments Mobility Comments Pt able to get to the edge of the bed with increased time. Pt states has bed posts that he uses to assist to get out pt bed. MAX AX 1 to stand to the FWW. Once on his feet able to take a few side steps to the head of bed. Pt is very unsteady on his feet. Pt states at home at times uses the transport chair to mobilize in the house. BP supine 180/52, sitting 204/96 and 220/74 , and after standing 199/61 and 189/69. Nursing notified of high bp. OT- Balance Assessment Sitting Balance and Reactions Static Sitting Balance Ability Good Dynamic Sitting Balance Ability Good Standing Balance and Reactions Static Standing Balance Ability Poor Dynamic Standing Balance Ability Poor M8 OT- IP Objective Assessments Start: 08/09/24 14:24 Freq: Status: Active Protocol: Document 08/09/24 14:26 [facility] (Rec: 08/09/24 14:49 [facility] [id number]) OT Gross Range of Motion Upper Extremity Range of Motion ROM Impairments grossly WFL OT Strength Upper Extremity Strength Assessment Within Functional Limits M9 OT- IP Assessment and Plan Start: 08/09/24 14:24 Freq: Status: Active Protocol: Document 08/09/24 14:26 [facility] (Rec: 08/09/24 14:49 [facility] [id number]) OT Summary Assessment and Plan Potential Rehabilitation Potential Fair Analytic Complexity at Evaluation Moderate Summary OT Impairments Pain,Range of Motion,Strength, Balance,Functional Cognition, Functional Mobility,Grooming, Dressing,Toileting,Bathing, Toilet Transfers,Shower Transfers,Activity Tolerance Progress Towards Goals Slow Progress due to Pain,Slow Progress due to Medical Issues,Slow Progress due to Activity Tolerance Assessment Summary Pt MOD complexity and main barriers are pain, decreased balance and activity tolerance and having HTN. Pt at this time needing assist for ADL and mobility needs and far from his baseline per pt of being MOD I with use of his SPC at home. Pt will benefit from SNF. Goals Grooming Goal Independent Dressing Goal Independent Toileting Goal Independent Bathing Goal Minimal Assistance Toilet Transfer Goal Independent Shower Transfer Goal Contact Guard Assistance Days to Meet Goals 25 Frequency of Treatment Other frequency 5x/week Treatment Plan OT Treatment Plan ADL Training,Functional Cognition Training,Functional Mobility,Patient/Family Education,Discharge Planning Discharge Recommendations OT Discharge Recommendations SNF Rehab Transportation Needs at Discharge Wheelchair/Cabulance
[2024-08-09] MEDS: hydrOXYzine HCL 25 MG TABLET PO ×2 (15:18→23:58)
--- NOTE | 2024-08-09 16:35 | PT.IPTN ---
Current Diagnoses Hyperkalemia (08/08/24) Hypertensive urgency (08/08/24) Heart failure, unspecified (08/08/24) Chronic kidney disease, unspecified (08/08/24) Physical Therapy Treatment Note M2 PT-IP Current Condition Start: 08/07/24 12:55 Freq: NEEDED Status: Active Protocol: Document 08/07/24 13:34 MB (Rec: 08/07/24 14:05 MB [id number]) Physical Therapy Current Condition Current Condition Evaluation Date 08/07/24 Treatment Diagnosis Right calf pain, cannot walk on leg M3 PT-IP Subjective Start: 08/07/24 12:55 Freq: NEEDED Status: Active Protocol: Document 08/09/24 16:35 AB (Rec: 08/09/24 17:39 AB [id number]) Subjective Physical Therapy Visit Type Type Treatment Note Visit Start Time 16:35 Visit Stop Time 17:00 Number of MANAGER OF QUALITY Visits 0 Physical Therapy Visit Comments Patient Comments agreeable to do PT Therapy Pain Assessment Pain When Pain Assessed During Weight Bearing Pain Present Pain Present Pain Reported Location Right leg Scale Used pain scale not stated Pain Management Techniques Distraction,Modification of Treatment,Re-positioning M4 PT-IP Mobility and Gait Start: 08/07/24 12:55 Freq: NEEDED Status: Active Protocol: Document 08/09/24 16:35 AB (Rec: 08/09/24 17:39 AB [id number]) PT-Bed Mobility Assessment Supine to Sit Supine to Sit Standby Assistance PT-Transfer Assessment Sit to and From Stand Sit to and from Stand Maximum Assistance,1 Person Assistance,Use of Upper Extremities Equipment Transfer Assistive Device Gait Belt,Front Wheeled Walker Orthotic/Prosthetic Devices or Brace: No Transfers Transfer Destination Chair Transfer Technique ambulated Transfer Ability Level of Assist Minimal Assistance,Moderate Assistance,1 Person Assistance ,Use of Upper Extremities Comments Mobility Comments pt in bed and agreeable to do PT. supine to sit SBA. sit to stand max A and max cues. pt ambulated in room using FWW ~ 30 ft mdo Awith c/o R calf pain and stated that he cannot use RLE. pt tend not to put weight on RLE. pt with decrease safety awareness; move FWW too far forwards and reaches for the chair armrest to sit on chair midway with turning towards the chair requiring max A for positioning on the chair and controlling descent. educated pt on safety but pt with decrease insight. pt agreed to walk again. sit to stand from chair max A and ambulated using fWW mod A and cues ~ 20 ft. instructed pt to sit on chair and needed cues for safety. pt agreed to stay up on the chair for dinner. positioned pt on the chair. call light and table placed within reach. Gait Assessment Gait Gait Assistance Required: Moderate Assistance Distance (Feet) 30 Able to Maintain Weight Bearing Status Yes During Gait Assistive Devices Assistive Device Gait Belt,Front Wheeled Walker Orthotic/Prosthetic Devices or Brace: No Gait Deviations General Gait Pattern Antalgic,Decreased Stride Length,Decreased Feet Clearance Factors Limiting Gait Function Factors Limiting Gait Function Decreased Activity Tolerance, Decreased Strength,Difficulty Following Directions,Limited Range of Motion,Pain,Poor Balance,Poor Safety Awareness M5 PT-IP Objective Assessments Start: 08/07/24 12:55 Freq: NEEDED Status: Active Protocol: Document 08/07/24 13:34 MB (Rec: 08/07/24 14:05 MB [id number]) Orientation Orientation/Cognition Level of Alertness Alert Orientation Name,Age,Birthday,Month,Date, Year,Day of Week,Place, Situation Language Function Ability No Deficits Noted,Receptive Aphasia Memory Description No Deficits Noted Gross Range of Motion Upper Extremity ROM Impairments NT Lower Extremity ROM Assessment Bilaterally Impaired Impairments B LE edema, left ankle fused and s/p TKR 1989 and limited range both joints, little tolerance to AP and any knee movement RLE as well Strength Lower Extremity Strength Assessment Bilaterally Impaired Comments Strength Comments Pt does not tolerate MMT either leg and he is profoundly weak B with post-op changes in left ankle and knee Coordination Assessment Gross Coordination Gross Coordination Impaired Sensation Assessment Sensation Gross Sensation Right LE Impaired,Left LE Impaired Sensation Description Hyperesthesia Other Assessments Other Other Assessments B LE edema and redness M6 PT-IP Treatment Start: 08/07/24 12:55 Freq: NEEDED Status: Active Protocol: Document 08/09/24 16:35 AB (Rec: 08/09/24 17:39 AB [id number]) Physical Therapy Treatment Education Education Provided Safety M7 PT-IP Assessment and Plan Start: 08/07/24 12:55 Freq: NEEDED Status: Active Protocol: Document 08/09/24 16:35 AB (Rec: 08/09/24 17:39 AB [id number]) PT Summary Assessment and Plan Potential Rehabilitation Potential Fair Summary Impairments Pain,ROM,Strength,Balance, Coordination,Sensation,Tone, Cognition,Bed Mobility, Transfers,Gait,Activity Tolerance Progress Towards Goals Slow Progress due to Pain,Slow Progress - Other Assessment Summary pt requiring max A for sit to stand and mod A with ambulation using FWW. pt continues to c/o R calf pain and tends not to put his weight on RLE during standing and walking due to pain affecting steadiness with ambulation. pt will benefit from SNF rehab to improve overall strength and mobility. Goals Bed Mobility Goal Independent Transfer Goal Standby Assistance,Front Wheeled Walker Gait Goal Standby Assistance,Front Wheel Walker Gait Distance 150 Days to Meet Goals 10 Frequency of Treatment Frequency Of Treatment Once a Day Treatment Plan Physical Therapy Treatment Plan Bed Mobility Training,Transfer Training,Gait Training, Therapeutic Exercise,Balance Retraining,Discharge Planning, Hot or Cold Pack,Neuromuscular Re-ed,Coordination Retraining ,Manual Therapy Recommendations To Nursing Amount of Assist Needed 1 Person Assist Discharge Recommendations PT Discharge Recommendations SNF Rehab Transportation Needs at Discharge Private Vehicle,Wheelchair/ Cabulance - PT assist 1PA
--- NOTE | 2024-08-09 17:17 | PM.PN.1 ---
Subjective Subjective Interval history: Chief complaint: Pain in R Calf, Can't Walk On It Summary: 83 y/o with PMH of HTN and CHF, came to ED complaining on b/l lower leg swelling and pain, more on the right. His SBP was 200 ~ 250 for the entire ED visit. He denies chest pain but has exertional dyspnea. He doesn't know his medications. Admitted with hypertensive urgency, CHF exacerbation. He recently started seeing Nephrology. He was taking clonidine transdermal and did not feel very good when he escalated this to a higher dose. He was nephrologists have him stopped this. The patient has been on oral antidiabetic diuretics at home. He had a pending EKG and echo later in the week which we will be doing inpatient. The patient denies any shortness a breath or chest pain. He does have leg edema. His blood pressures range in 170-190 range with very occasional systolics of 120. S: His leg edema is improved today, and his breathing is better. He was off from oxygen. He has really no other complaints His creatinine continues to increase today, last furosemide was just after midnight on 08/08. Exam Vital Signs (past 8 hours): - 08/09/24 10:20 08/09/24 12:00 08/09/24 15:04 Temperature 96.8 F L Pulse Rate 50 L 58 L 58 L Respiratory Rate 14 Blood Pressure 130/45 L 162/63 H 162/63 H Pulse Oximetry 99 Oxygen Flow Rate 0 08/09/24 16:00 Temperature 97.5 F L Pulse Rate 58 L Respiratory Rate 15 Blood Pressure 171/49 H Pulse Oximetry 98 Oxygen Flow Rate 0 Oxygen Delivery Method Room Air Oxygen Flow Rate 0 Narrative Exam Narrative: NAD, alert and oriented. Fluent speech. Lungs are clear, normal rate and effort. Heart is regular, no murmur gallop or rub. Abdomen is soft, non distended. Extremities are with 0-1+ edema. Objective Labs 08/09/24 04:18 08/09/24 04:18 Labs: Laboratory Results - last 24 hr 08/09/24 04:18 WBC 9.1 RBC 4.02 L Hgb 12.2 L Hct 36.2 L MCV 90.1 MCH 30.3 MCHC 33.7 RDW 13.9 Plt Count 135 L Sodium 134 L Potassium 4.4 Chloride 104 Carbon Dioxide 17 L BUN 69 H Creatinine 2.63 H Estimated GFR 24 L BUN/Creatinine Ratio 26.2 H Glucose 136 H Calcium 8.9 PFSH Medical History Diabetes Hypertension Surgical History Knee joint replacement status H/O knee surgery Social History household members: spouse and children Smoking Status: Former smoker alcohol intake: former Assessment & Plan Assessment & Plan narrative: 1. Hypertensive urgency, present on admission and improved. - likely causing CHF exacerbation - Continue Coreg 25 mg bid - Norvasc 5 mg bid - Chlorthalidone 25 mg daily - hydralazine 25 mg qid - prn hydralazine IV 2. Acute diastolic heart failure, present on admission and improved -now holding lasix due to worsening Cr, but he is not hypoxic and has no LE edema today. 3. Hyperkalemia, present on admission and improving. - not clear what is basic renal function at the time of admission - monitored electrolytes - had Lokelma x 1 4. Acute kidney injury on chronic kidney disease, present on admission and active. -Hold lasix 3/ and monitor Cr. PLAN: Hold diuresis monitor cr until improving. Currently uptrending and was 2.63 this AM. Dispo: hopeful for discharge tomorrow, but needs improving renal function. Consider further evaluation with ultrasound tomorrow if no improvement. Full code. DVT prophylaxis - heparin Time-Based Coding :: [TOTAL MINUTES] spent with patient and on the chart (including review of chart, obtaining history, exam, reviewing outside data, placing orders, documenting exam and treatment plan, and counseling patient) on [DATE].
[2024-08-09] MEDS: HYDRALAZINE 20 MG/ML VIAL 10 MG IV (17:34)
[2024-08-10] VITALS (12 sets, daily range): BP systolic 144–185; BP diastolic 46–62; PULSE 50–63; RESP 14–18; TEMP 35.9–36.4; O2SAT 98–99
[2024-08-10] MEDS: HYDRALAZINE 25 MG TABLET PO ×4 (03:08→20:30)
[2024-08-10] MEDS: ACETAMINOPHEN 325 MG TABLET 650 MG PO ×3 (03:09→16:48)
[2024-08-10] MEDS: CHLORTHALIDONE 25 MG TABLET PO (08:45)
[2024-08-10] MEDS: hydrOXYzine HCL 25 MG TABLET PO ×3 (08:45→20:31)
[2024-08-10] MEDS: AMLODIPINE 5 MG TABLET PO ×2 (08:45→20:31)
[2024-08-10] MEDS: SODIUM CHLORIDE 0.9% FLUSH 10 ML IV ×2 (08:46→21:23)
[2024-08-10] MEDS: HEPARIN 5,000 UNIT/ML VIAL 5000 UNIT SUBCUT ×2 (08:46→20:30)
[2024-08-10 10:05] LABS: Add Manual Diff / Slide Review NO; Basophils Absolute Auto 100 /uL (0-100); Basophils Percent Auto 0.7 % (0-2); Eosinophils Absolute Auto 200 /uL (0-450); Eosinophils Percent Auto 2.5 % (2-4); Hematocrit 39.8 % (41-53); Hemoglobin 13.4 g/dL (13.5-17.5); Lymphocytes Absolute Auto 1300 /uL (1100-4500); Lymphocytes Percent Auto 13.9 % (25-40); Mean Corpuscular HGB Conc 33.8 % (30-36); Mean Corpuscular Hemoglobin 30.7 PG (26-34); Monocytes Absolute Auto 700 /uL (0-900); Monocytes Percent Auto 7.3 % (3-14); Neutrophils Absolute Auto 6900 /uL (1500-7000); Neutrophils Percent Auto 75.6 % (50-75); Platelet Count 153 X10^3/uL (150-400); Red Blood Cell Count 4.37 X10^6/uL (4.5-5.9); Red Cell Distribution Width 13.9 % (11.6-14.8); White Blood Cell Count 9.1 X10^3/uL (4.5-11.0)
--- NOTE | 2024-08-10 10:20 | PT.IPTN ---
Current Diagnoses Hyperkalemia (08/08/24) Hypertensive urgency (08/08/24) Heart failure, unspecified (08/08/24) Chronic kidney disease, unspecified (08/08/24) Physical Therapy Treatment Note M2 PT-IP Current Condition Start: 08/07/24 12:55 Freq: NEEDED Status: Active Protocol: Document 08/07/24 13:34 MB (Rec: 08/07/24 14:05 MB [id number]) Physical Therapy Current Condition Current Condition Evaluation Date 08/07/24 Treatment Diagnosis Right calf pain, cannot walk on leg M3 PT-IP Subjective Start: 08/07/24 12:55 Freq: NEEDED Status: Active Protocol: Document 08/10/24 09:55 KS (Rec: 08/10/24 12:02 KS [id number]) Subjective Physical Therapy Visit Type Type Treatment Note Visit Start Time 09:55 Visit Stop Time 10:20 Number of MORNING NEWS ANCHOR Visits 1 Physical Therapy Visit Comments Patient Comments agreeable to do PT Therapy Pain Assessment Pain When Pain Assessed During Weight Bearing Pain Present Pain Present Pain Reported Location Right leg Scale Used not quantified Pain Management Techniques Distraction,Elevation M4 PT-IP Mobility and Gait Start: 08/07/24 12:55 Freq: NEEDED Status: Active Protocol: Document 08/10/24 09:55 KS (Rec: 08/10/24 12:02 KS [id number]) PT-Bed Mobility Assessment Supine to Sit Supine to Sit Standby Assistance Sit to Supine Sit to Supine Standby Assistance Scooting Scooting to Edge of Bed Standby Assistance PT-Transfer Assessment Sit to and From Stand Sit to and from Stand Minimal Assistance,1 Person Assistance,Use of Upper Extremities Equipment Transfer Assistive Device Gait Belt,Front Wheeled Walker Orthotic/Prosthetic Devices or Brace: No Transfers Transfer Destination Bed Transfer Technique ambulated Transfer Ability Level of Assist Minimal Assistance,1 Person Assistance,Use of Upper Extremities Comments Mobility Comments Pt in bed upon arrival, reports recent mobilization to bathroom but agreeable to ambulate again. SBA for bed mobility, Min A for sit<>stand w/ FWW. Pt is very weak in bilateral LE and relies heavily on BUE for support. Able to ambulate ~20 ft w/ FWW CGA, pt drags RLE behind him when ambulating and tends to push FWW too far in front of him, increasing fall risk. Pt limited to short distance ambulation due to such heavy reliance on BUE resulting in quick approach to fatigue. Pt returned to bed CGA and left in bed w/ all needs in reach. Gait Assessment Gait Gait Assistance Required: Minimum Assistance,1 Person Assist Distance (Feet) 20 Able to Maintain Weight Bearing Status Yes During Gait Assistive Devices Assistive Device Gait Belt,Front Wheeled Walker Orthotic/Prosthetic Devices or Brace: No Gait Deviations General Gait Pattern Antalgic,Decreased Stride Length,Decreased Feet Clearance Factors Limiting Gait Function Factors Limiting Gait Function Decreased Activity Tolerance, Decreased Strength,Difficulty Following Directions,Limited Range of Motion,Pain,Poor Balance,Poor Safety Awareness Comments Gait Comments See mobility section for details. PT-Balance Assessment Sitting Balance and Reactions Static Sitting Balance Ability Good Dynamic Sitting Balance Ability Good Standing Balance and Reactions Static Standing Balance Ability Fair Dynamic Standing Balance Ability Poor Device Used FWW M5 PT-IP Objective Assessments Start: 08/07/24 12:55 Freq: NEEDED Status: Active Protocol: Document 08/07/24 13:34 MB (Rec: 08/07/24 14:05 MB [id number]) Orientation Orientation/Cognition Level of Alertness Alert Orientation Name,Age,Birthday,Month,Date, Year,Day of Week,Place, Situation Language Function Ability No Deficits Noted,Receptive Aphasia Memory Description No Deficits Noted Gross Range of Motion Upper Extremity ROM Impairments NT Lower Extremity ROM Assessment Bilaterally Impaired Impairments B LE edema, left ankle fused and s/p TKR 1989 and limited range both joints, little tolerance to AP and any knee movement RLE as well Strength Lower Extremity Strength Assessment Bilaterally Impaired Comments Strength Comments Pt does not tolerate MMT either leg and he is profoundly weak B with post-op changes in left ankle and knee Coordination Assessment Gross Coordination Gross Coordination Impaired Sensation Assessment Sensation Gross Sensation Right LE Impaired,Left LE Impaired Sensation Description Hyperesthesia Other Assessments Other Other Assessments B LE edema and redness M6 PT-IP Treatment Start: 08/07/24 12:55 Freq: NEEDED Status: Active Protocol: Document 08/10/24 09:55 KS (Rec: 08/10/24 12:02 NC [id number]) Physical Therapy Treatment Education Education Provided Safety M7 PT-IP Assessment and Plan Start: 08/07/24 12:55 Freq: NEEDED Status: Active Protocol: Document 08/10/24 09:55 KS (Rec: 08/10/24 12:02 KS [id number]) PT Summary Assessment and Plan Potential Rehabilitation Potential Fair Summary Impairments Pain,ROM,Strength,Balance, Coordination,Sensation,Tone, Cognition,Bed Mobility, Transfers,Gait,Activity Tolerance Progress Towards Goals Slow Progress due to Pain,Slow Progress - Other Assessment Summary Pt is showing some improvements with mobility, however remains at high risk of falling due to profound BLE weakness and difficulty using FWW. Pt unable to fully straighten RLE and unable to weightbear on it due to pain and essentially drags it while ambulating. LLE is limited as well due to weakness and limited ROM/ankle fusion. At this time, pt would benefit from SNF to improve functional mobility, safety, and strength. Goals Bed Mobility Goal Independent Transfer Goal Standby Assistance,Front Wheeled Walker Gait Goal Standby Assistance,Front Wheel Walker Gait Distance 150 Days to Meet Goals 10 Frequency of Treatment Frequency Of Treatment Once a Day Treatment Plan Physical Therapy Treatment Plan Bed Mobility Training,Transfer Training,Gait Training, Therapeutic Exercise,Balance Retraining,Discharge Planning, Hot or Cold Pack,Neuromuscular Re-ed,Coordination Retraining ,Manual Therapy Recommendations To Nursing Amount of Assist Needed 1 Person Assist Discharge Recommendations PT Discharge Recommendations SNF Rehab Transportation Needs at Discharge Private Vehicle,Wheelchair/ Cabulance - PT assist 1PA
[2024-08-10 10:59] LABS: BUN Creatinine Ratio 26.7 (6-22); Blood Urea Nitrogen 67 mg/dL (9-20); Calcium 9.2 mg/dL (8.4-10.2); Carbon Dioxide 17 mmol/L (22-32); Chloride 104 mmol/L (98-107); Estimated Glomerular Filt Rate 25 mL/min (>60); Glucose 157 mg/dL (80-110); HEMOLYSIS < 15 (0-50); Magnesium 2.5 mg/dL (1.6-2.3); Potassium 4.7 mmol/L (3.4-5.1); Sodium 134 mmol/L (137-145)
--- NOTE | 2024-08-10 12:49 | CM.DPC ---
DCP SNF vs HH Per MD, pt making progress and waiting for further labs and likely ready for d/c by tomorrow Wednesday. Per PT, pt fatigues quickly and needing cues for using the FWW (pt prefers cane) and recommending SNF. Per [facility] admissions, they can accept pt and have tentative transport scheduled for tomorrow Wed at 1130. 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 SW updated pt on acceptance at [facility] and pt confirms he has hx of two SNF placements in the past ([facility] and [facility]) and he still thinks he can likely d/c home tomorrow with HH. If he is able to d/c home, preference is [facility]. Pt states it likely would be Dtr Delfina transporting pt home in the afternoon if he is safe for home at d/c. Updated MD on plan for tomorrow of [facility] vs [facility] pending progress with PT. SW made initial [facility] referral and included [facility] to review, they feel they can likely accept. PASRR not done yet as pt currently declines SNF but may be agreeable tomorrow if he is still fatiguing quickly. Plan: SW to follow closely for plan of discharge tomorrow Wed to either [facility] around 1130 or home via Dtr POV and new [facility]. Discharge summary and orders needed to be faxed to [facility] at d/c vs completion of PASRR if SNF. Shanae Velásquez MSW
[2024-08-10] MEDS: DICLOFENAC 1% GEL 100 GM 1 APPLIC TOP ×2 (13:28→16:46)
--- NOTE | 2024-08-10 15:20 | P.PN_ITS ---
Subjective Subjective Interval history: Chief complaint: Pain in R Calf, Can't Walk On It Summary: 83 y/o with PMH of HTN and CHF, came to ED complaining on b/l lower leg swelling and pain, more on the right. His SBP was 200 ~ 250 for the entire ED visit. He denies chest pain but has exertional dyspnea. He doesn't know his medications. Admitted with hypertensive urgency, CHF exacerbation. He recently started seeing Nephrology. He was taking clonidine transdermal and did not feel very good when he escalated this to a higher dose. He was nephrologists have him stopped this. The patient has been on oral antidiabetic diuretics at home. He had a pending EKG and echo later in the week which we will be doing inpatient. The patient denies any shortness a breath or chest pain. He does have leg edema. His blood pressures range in 170-190 range with very occasional systolics of 120. S: His leg edema is improved today, and his breathing is better. He was off from oxygen. He has really no other complaints His Cr is better, though only slightly. Possible rehab tomorrow plan vs home with home health. Exam Vital Signs (past 8 hours): - 08/10/24 08:45 08/10/24 11:00 08/10/24 11:00 Temperature Pulse Rate 59 L 58 L Respiratory Rate 16 Blood Pressure 177/55 H 165/62 H 165/62 H Pulse Oximetry 99 Oxygen Flow Rate 0 08/10/24 15:00 Temperature 96.9 F L Pulse Rate 57 L Respiratory Rate 14 Blood Pressure 165/49 H Pulse Oximetry 99 Oxygen Flow Rate 0 Oxygen Delivery Method Room Air Oxygen Flow Rate 0 Narrative Exam Narrative: NAD, alert and oriented. Fluent speech. Lungs are clear, normal rate and effort. Heart is regular, no murmur gallop or rub. Abdomen is soft, non distended. Extremities are with 0-1+ edema. Objective Labs 08/10/24 09:09 08/10/24 09:09 Labs: Laboratory Results - last 24 hr 08/10/24 09:09 WBC 9.1 RBC 4.37 L Hgb 13.4 L Hct 39.8 L MCV 91.0 MCH 30.7 MCHC 33.8 RDW 13.9 Plt Count 153 Neut % (Auto) 75.6 H Lymph % (Auto) 13.9 L [place] % (Auto) 7.3 Eos % (Auto) 2.5 Baso % (Auto) 0.7 Neut # (Auto) 6900 Lymph # (Auto) 1300 [place] # (Auto) 700 Eos # (Auto) 200 Baso # (Auto) 100 Sodium 134 L Potassium 4.7 Chloride 104 Carbon Dioxide 17 L BUN 67 H Creatinine 2.51 H Estimated GFR 25 L BUN/Creatinine Ratio 26.7 H Glucose 157 H Calcium 9.2 Magnesium 2.5 H PFSH Medical History Diabetes Hypertension Surgical History Knee joint replacement status H/O knee surgery Social History household members: spouse and children Smoking Status: Former smoker alcohol intake: former Assessment & Plan Assessment & Plan narrative: 1. Hypertensive urgency, present on admission and improved. - likely causing CHF exacerbation - Continue Coreg 25 mg bid - Norvasc 5 mg bid - Chlorthalidone 25 mg daily - hydralazine 25 mg qid - prn hydralazine IV 2. Acute diastolic heart failure, present on admission and improved -now holding lasix due to worsening Cr, but he is not hypoxic and has no LE edema today. 3. Hyperkalemia, present on admission and improving. - not clear what is basic renal function at the time of admission, improved slightly today after holding furosemide. - monitored electrolytes - had Lokelma x 1 4. Acute kidney injury on chronic kidney disease, present on admission and active. -Holding lasix 08/08 and monitor Cr. PLAN: Hold diuresis monitor cr one more day, if it continues to improve or remains stable, plan for either home with home health or SNF tomorrow. Full code. DVT prophylaxis - heparin Time-Based Coding :: [TOTAL MINUTES] spent with patient and on the chart (including review of chart, obtaining history, exam, reviewing outside data, placing orders, documenting exam and treatment plan, and counseling patient) on [DATE].
--- NOTE | 2024-08-10 15:25 | OT.IP.TRT ---
Current Diagnoses Hyperkalemia (08/08/24) Hypertensive urgency (08/08/24) Heart failure, unspecified (08/08/24) Chronic kidney disease, unspecified (08/08/24) Occupational Therapy Treatment Note M2 OT-IP Current Condition Start: 08/09/24 14:24 Freq: Status: Active Protocol: Document 08/09/24 14:26 [facility] (Rec: 08/09/24 14:49 [facility] [id number]) Occupational Therapy Current Condition Current Condition Evaluation Date 08/09/24 Treatment Diagnosis Acute CHF Diagnosis Onset Date 08/08/24 M3 OT- IP Subjective and Pain Start: 08/09/24 14:24 Freq: Status: Active Protocol: Document 08/10/24 15:54 [facility] (Rec: 08/10/24 16:01 [facility] [id number]) OT- Subjective Occupational Therapy Visit Type Type Treatment Note Visit Start Time 15:25 Visit Stop Time 15:53 Occupational Therapy Visit Comments Patient Comments Pt agreed to get up but not wanting to shower at this time . Pt more alert today and feeling better. Patient/Caregiver Goals To get better. OT Pain Assessment Pain When Pain Assessed During Mobility Pain Present Pain Present Pain Reported Location bilat feet Intensity 5 Scale Used Numeric (0 - 10) M4 OT- IP ADL's Start: 08/09/24 14:24 Freq: Status: Active Protocol: Document 08/10/24 15:54 [facility] (Rec: 08/10/24 16:01 [facility] [id number]) OT ADL-Grooming General Evaluation Grooming Ability Standby Assistance Areas Needing Assistance Retrieving/Set-up of Grooming Items Comments OT Grooming Comments WHile seated on the edge of the bed. OT ADL-Oral Care General Eval Oral Care Ability Standby Assistance Comments Oral Care Comments Pt able to clean his dentures after set-up. OT ADL-Dressing General Eval Lower Body Dressing Ability Minimal Assistance Comments OT Dressing Comments Pt states at home his daughter assist with his socks and use of cane to help get his pants on over his feet. Pt states does have sheather at home and did use a sock aid in the past . OT ADL-Toileting Comments OT Toileting Comments Pt not having to go. OT ADL-Bathing Comments OT Bathing Comments Pt not wanting to shower but states open to try tomorrow. M6 OT- IP Functional Cognition Start: 08/09/24 14:24 Freq: Status: Active Protocol: Document 08/10/24 15:54 [facility] (Rec: 08/10/24 16:01 [facility] [id number]) Cognitive Factors Limiting Selfcare Function Cognitive Comments Cognitive Assessment Comments Pt able to follow commands for needs. M7 OT- IP Mobility and Balance Start: 08/09/24 14:24 Freq: Status: Active Protocol: Document 08/10/24 15:54 [facility] (Rec: 08/10/24 16:01 [facility] [id number]) OT- Bed Mobility Assessment Supine to Sit Supine to Sit Assist Independent Sit to Supine Sit to Supine Assist Independent OT-Transfer Assessment Sit to and From Stand Sit to and from Stand Minimal Assistance Transfers Transfer Ability Contact Guard Assistance Technique Transfer Destination Bed Transfer Technique Stand Step Pivot Devices Transfer Assistive Devices Gait Belt,Front Wheeled Walker Comments Mobility Comments HARRIET to stand to the FWW and CGA when up on his feet today much improved. OT- Balance Assessment Sitting Balance and Reactions Static Sitting Balance Ability Good Dynamic Sitting Balance Ability Good Standing Balance and Reactions Static Standing Balance Ability Fair Dynamic Standing Balance Ability Fair M8 OT- IP Objective Assessments Start: 08/09/24 14:24 Freq: Status: Active Protocol: Document 08/09/24 14:26 [facility] (Rec: 08/09/24 14:49 [facility] [id number]) OT Gross Range of Motion Upper Extremity Range of Motion ROM Impairments grossly WFL OT Strength Upper Extremity Strength Assessment Within Functional Limits M9 OT- IP Assessment and Plan Start: 08/09/24 14:24 Freq: Status: Active Protocol: Document 08/10/24 15:54 [facility] (Rec: 08/10/24 16:01 [facility] [id number]) OT Summary Assessment and Plan Potential Rehabilitation Potential Good Analytic Complexity at Evaluation Moderate Summary OT Impairments Pain,Range of Motion,Strength, Balance,Functional Cognition, Functional Mobility,Grooming, Dressing,Toileting,Bathing, Toilet Transfers,Shower Transfers,Activity Tolerance Progress Towards Goals Progressing Toward Goals Assessment Summary Pt more alert and mobilizing better today with HARRIET with FWW. Pt not wanting to shower today but agreed to try tomorrow. Pt will benefit from skilled rehab. Goals Dressing Goal Independent,Head Of Biology,Sock Aid Toileting Goal Independent Bathing Goal Minimal Assistance Toilet Transfer Goal Independent Shower Transfer Goal Standby Assistance Days to Meet Goals 10 Frequency of Treatment Other frequency 5x/week Treatment Plan OT Treatment Plan ADL Training,Functional Cognition Training,Functional Mobility,Patient/Family Education,Discharge Planning Discharge Recommendations OT Discharge Recommendations SNF Rehab Transportation Needs at Discharge Wheelchair/Cabulance
[2024-08-11] VITALS (10 sets, daily range): BP systolic 145–177; BP diastolic 47–128; PULSE 54–85; RESP 15–19; TEMP 35.8–36.6; O2SAT 96–98
[2024-08-11] MEDS: HYDRALAZINE 25 MG TABLET PO ×3 (05:20→17:59)
[2024-08-11] MEDS: ACETAMINOPHEN 325 MG TABLET 650 MG PO ×2 (05:24→17:35)
[2024-08-11] MEDS: DICLOFENAC 1% GEL 100 GM 1 APPLIC TOP (08:01)
[2024-08-11] MEDS: HEPARIN 5,000 UNIT/ML VIAL 5000 UNIT SUBCUT ×2 (08:01→20:24)
[2024-08-11] MEDS: CHLORTHALIDONE 25 MG TABLET PO (08:01)
[2024-08-11] MEDS: AMLODIPINE 5 MG TABLET PO ×2 (08:01→20:25)
[2024-08-11] MEDS: SODIUM CHLORIDE 0.9% FLUSH 10 ML IV ×2 (08:02→20:25)
[2024-08-11 09:36] LABS: Blood Urea Nitrogen 76 mg/dL (9-20); Calcium 9.2 mg/dL (8.4-10.2); Carbon Dioxide 19 mmol/L (22-32); Chloride 105 mmol/L (98-107); Estimated Glomerular Filt Rate 22 mL/min (>60); Glucose 136 mg/dL (80-110); HEMOLYSIS < 15 (0-50); Potassium 4.4 mmol/L (3.4-5.1); Sodium 138 mmol/L (137-145)
--- NOTE | 2024-08-11 11:36 | CM.DPNOTE ---
DCP Continued: Reviewed EMR and team rounds for pt?s medical status. Per hospitalist, pt Cr levels are high and pt had a episode of emesis this morning. Pt still recommended for SNF Rehab, was accepted by [facility]. DCP entered room, introduced self and role. Present in the room was pt's SOLUTION COORDINATOR. Pt endorses that he would not like to go to SNF and feels comfortable with dc home with family. Pt confirmed to cancel referral to SNF at this time. Pt states daughter, Delfina, can transport him home when cleared. DCP and SOLUTION COORDINATOR notified hospitalist of pt preferences. DCP called [facility], cancelled referral. [facility] accepts referral, will need dc summary when available. Plan: Anticipating dc home with [facility], daughter to transport, when cleared (Wednesday, 08/11 vs. Wednesday, 08/12). CM Team will continue to follow for coordination of discharge plans. DORINA Bailey
--- NOTE | 2024-08-11 13:40 | DI.US.S_ITS ---
PROCEDURE: US RENAL COMPLETE INDICATIONS: JAMAL TECHNIQUE: Real-time scanning was performed of the kidneys and bladder, with image documentation. COMPARISON: None. FINDINGS: Kidneys: Kidneys are normal in size for age. Right kidney measures 8.8 cm long; left kidney measures 9.6 cm long. Right renal cortical thickness is 1.0 cm; left renal cortical thickness is 1.4 cm. Renal cortical echotexture is normal. No hydronephrosis or nephrolithiasis. No suspicious solid mass lesions. Bladder: Pre-void bladder volume is 181 mL. Post-void residual is 3.6 mL. Pre-void images demonstrate no intraluminal masses or stones. On pre-void images, bilateral ureteral jets are noted with color Doppler interrogation. (Of note, ureteral jets may not be detectable in up to 25% of cases due to insufficient differences in specific gravity between ureteral and bladder urine). Miscellaneous: No free pelvic fluid. The prostate gland below the bladder appears moderately prominent in size. IMPRESSION: Moderate prosthetic enlargement, but without urinary tract obstruction. Mild asymmetry of the kidneys, smaller on the right than the left to a mild degree. No stones found. Normal bladder emptying. Dictated by: Noble Long M.D. on 08/11/2024 at 15:59 Approved by: Noble Long M.D. on 08/11/2024 at 16:02
--- NOTE | 2024-08-11 15:10 | PT.IPTN ---
Current Diagnoses Hyperkalemia (08/08/24) Hypertensive urgency (08/08/24) Heart failure, unspecified (08/08/24) Chronic kidney disease, unspecified (08/08/24) Physical Therapy Treatment Note M2 PT-IP Current Condition Start: 08/07/24 12:55 Freq: NEEDED Status: Active Protocol: Document 08/07/24 13:34 MB (Rec: 08/07/24 14:05 MB [id number]) Physical Therapy Current Condition Current Condition Evaluation Date 08/07/24 Treatment Diagnosis Right calf pain, cannot walk on leg M3 PT-IP Subjective Start: 08/07/24 12:55 Freq: NEEDED Status: Active Protocol: Document 08/11/24 15:10 AB (Rec: 08/11/24 17:37 AB [id number]) Subjective Physical Therapy Visit Type Type Treatment Note Visit Start Time 15:10 Visit Stop Time 15:30 Number of FIBERGLASS ROLLER Visits 0 Physical Therapy Visit Comments Patient Comments agreeable to do PT M4 PT-IP Mobility and Gait Start: 08/07/24 12:55 Freq: NEEDED Status: Active Protocol: Document 08/11/24 15:10 AB (Rec: 08/11/24 17:37 AB [id number]) PT-Bed Mobility Assessment Supine to Sit Supine to Sit Standby Assistance Sit to Supine Sit to Supine Standby Assistance PT-Transfer Assessment Sit to and From Stand Sit to and from Stand Standby Assistance,1 Person Assistance,Use of Upper Extremities Equipment Transfer Assistive Device Gait Belt,Front Wheeled Walker Orthotic/Prosthetic Devices or Brace: No Comments Mobility Comments pt in bed and agreeable to do PT. supine to sit sBA. sit to stand SBA and ambulated in room using FWW ~ 25 ft SBA to occasional CGA. pt able to put more weight on RLE today and with less antalgic gait. pt sat on EOB. adjusted FWW and educated pt to try to stand more upright. sit to stand again SBA and pt ambulated more in room ~ 15 ft SBA to cGA. pt wants to go back to bed. sit to supine SBA. positioned pt in bed. call light and table placed within reach. Gait Assessment Gait Gait Assistance Required: Standby Assistance,Contact Guard Assist Distance (Feet) 25 Able to Maintain Weight Bearing Status Yes During Gait Assistive Devices Assistive Device Gait Belt,Front Wheeled Walker Orthotic/Prosthetic Devices or Brace: No Gait Deviations General Gait Pattern Antalgic,Decreased Stride Length,Decreased Feet Clearance Factors Limiting Gait Function Factors Limiting Gait Function Decreased Activity Tolerance, Decreased Strength,Difficulty Following Directions,Limited Range of Motion,Pain,Poor Balance,Poor Safety Awareness M5 PT-IP Objective Assessments Start: 08/07/24 12:55 Freq: NEEDED Status: Active Protocol: Document 08/07/24 13:34 MB (Rec: 08/07/24 14:05 MB [id number]) Orientation Orientation/Cognition Level of Alertness Alert Orientation Name,Age,Birthday,Month,Date, Year,Day of Week,Place, Situation Language Function Ability No Deficits Noted,Receptive Aphasia Memory Description No Deficits Noted Gross Range of Motion Upper Extremity ROM Impairments NT Lower Extremity ROM Assessment Bilaterally Impaired Impairments B LE edema, left ankle fused and s/p TKR 1989 and limited range both joints, little tolerance to AP and any knee movement RLE as well Strength Lower Extremity Strength Assessment Bilaterally Impaired Comments Strength Comments Pt does not tolerate MMT either leg and he is profoundly weak B with post-op changes in left ankle and knee Coordination Assessment Gross Coordination Gross Coordination Impaired Sensation Assessment Sensation Gross Sensation Right LE Impaired,Left LE Impaired Sensation Description Hyperesthesia Other Assessments Other Other Assessments B LE edema and redness M6 PT-IP Treatment Start: 08/07/24 12:55 Freq: NEEDED Status: Active Protocol: Document 08/11/24 15:10 AB (Rec: 08/11/24 17:37 [id number]) Physical Therapy Treatment Education Education Provided Safety M7 PT-IP Assessment and Plan Start: 08/07/24 12:55 Freq: NEEDED Status: Active Protocol: Document 08/11/24 15:10 AB (Rec: 08/11/24 17:37 [id number]) PT Summary Assessment and Plan Potential Rehabilitation Potential Fair Summary Impairments Pain,ROM,Strength,Balance, Coordination,Sensation,Tone, Cognition,Bed Mobility, Transfers,Gait,Activity Tolerance Progress Towards Goals Slow Progress due to Pain,Slow Progress due to Medical Issues,Slow Progress due to Activity Tolerance Assessment Summary pt progressing slowly with mobility and was able to ambulate using FWW SBA to CGA. pt was able put more weight on RLE presenting with steadier gait and less antalgic. pt wants to go home . pt will need assistance at home. pt stated that his daughter will buy a FWW for him. pt now more agreeable to use a fWW. Goals Bed Mobility Goal Independent Transfer Goal Standby Assistance,Front Wheeled Walker Gait Goal Standby Assistance,Front Wheel Walker Gait Distance 150 Days to Meet Goals 10 Frequency of Treatment Frequency Of Treatment Once a Day Recommendations To Nursing Amount of Assist Needed 1 Person Assist Discharge Recommendations PT Discharge Recommendations Home with Assistance,Home Health,SNF Rehab - PT assist 1PA
--- NOTE | 2024-08-11 16:15 | OT.IP.TRT ---
Current Diagnoses Hyperkalemia (08/08/24) Hypertensive urgency (08/08/24) Heart failure, unspecified (08/08/24) Chronic kidney disease, unspecified (08/08/24) Occupational Therapy Treatment Note M2 OT-IP Current Condition Start: 08/09/24 14:24 Freq: Status: Active Protocol: Document 08/09/24 14:26 [facility] (Rec: 08/09/24 14:49 [facility] [id number]) Occupational Therapy Current Condition Current Condition Evaluation Date 08/09/24 Treatment Diagnosis Acute CHF Diagnosis Onset Date 08/08/24 M3 OT- IP Subjective and Pain Start: 08/09/24 14:24 Freq: Status: Active Protocol: Document 08/11/24 16:22 [facility] (Rec: 08/11/24 16:26 [facility] [id number]) OT- Subjective Occupational Therapy Visit Type Type Treatment Note Visit Start Time 16:00 Visit Stop Time 16:15 Occupational Therapy Visit Comments Patient Comments Pt states not wanting to get up but states has been moving much better today and wanting to go home. Patient/Caregiver Goals To go home. OT Pain Assessment Pain When Pain Assessed At Rest Pain Present Pain Present Pain Reported Location bilat feet Pain Behaviors Facial Grimacing M4 OT- IP ADL's Start: 08/09/24 14:24 Freq: Status: Active Protocol: Document 08/10/24 15:54 [facility] (Rec: 08/10/24 16:01 [facility] [id number]) OT ADL-Grooming General Evaluation Grooming Ability Standby Assistance Areas Needing Assistance Retrieving/Set-up of Grooming Items Comments OT Grooming Comments WHile seated on the edge of the bed. OT ADL-Oral Care General Eval Oral Care Ability Standby Assistance Comments Oral Care Comments Pt able to clean his dentures after set-up. OT ADL-Dressing General Eval Lower Body Dressing Ability Minimal Assistance Comments OT Dressing Comments Pt states at home his daughter assist with his socks and use of cane to help get his pants on over his feet. Pt states does have copy lathe tender at home and did use a sock aid in the past . OT ADL-Toileting Comments OT Toileting Comments Pt not having to go. OT ADL-Bathing Comments OT Bathing Comments Pt not wanting to shower but states open to try tomorrow. M6 OT- IP Functional Cognition Start: 08/09/24 14:24 Freq: Status: Active Protocol: Document 08/11/24 16:22 [facility] (Rec: 08/11/24 16:26 [facility] [id number]) Cognitive Factors Limiting Selfcare Function Cognitive Comments Cognitive Assessment Comments Pt seems at his baseline and able to recall details of conversation yesterday with OT couple days ago. ABle to go over BUE exercises with theraband with latex free band . M8 OT- IP Objective Assessments Start: 08/09/24 14:24 Freq: Status: Active Protocol: Document 08/09/24 14:26 [facility] (Rec: 08/09/24 14:49 [facility] [id number]) OT Gross Range of Motion Upper Extremity Range of Motion ROM Impairments grossly WFL OT Strength Upper Extremity Strength Assessment Within Functional Limits M9 OT- IP Assessment and Plan Start: 08/09/24 14:24 Freq: Status: Active Protocol: Document 08/11/24 16:22 [facility] (Rec: 08/11/24 16:26 [facility] [id number]) OT Summary Assessment and Plan Potential Rehabilitation Potential Good Analytic Complexity at Evaluation Moderate Summary OT Impairments Pain,Range of Motion,Strength, Balance,Functional Cognition, Functional Mobility,Grooming, Dressing,Toileting,Bathing, Toilet Transfers,Shower Transfers,Activity Tolerance Progress Towards Goals Progressing Toward Goals Assessment Summary Able to go over BUE exercises with theraband-latex free with pt. Pt to go home with 24/7 assist and home health. Pt states his family to get a FWW for him to use. Goals Dressing Goal Independent,Test Tube Maker,Sock Aid Toileting Goal Independent Bathing Goal Minimal Assistance Toilet Transfer Goal Independent Shower Transfer Goal Standby Assistance Days to Meet Goals 7 Frequency of Treatment Other frequency 5x/week Treatment Plan OT Treatment Plan ADL Training,Functional Cognition Training,Functional Mobility,Patient/Family Education,Discharge Planning Discharge Recommendations OT Discharge Recommendations Home with 24/7 Assist Available,Home Health Transportation Needs at Discharge Private Vehicle
--- NOTE | 2024-08-11 16:53 | PM.PN.1 ---
Subjective Subjective Interval history: Chief complaint: Pain in R Calf, Can't Walk On It Summary: 83 y/o with PMH of HTN and CHF, came to ED complaining on b/l lower leg swelling and pain, more on the right. His SBP was 200 ~ 250 for the entire ED visit. He denies chest pain but has exertional dyspnea. He doesn't know his medications. Admitted with hypertensive urgency, CHF exacerbation. He recently started seeing Nephrology. He was taking clonidine transdermal and did not feel very good when he escalated this to a higher dose. He was nephrologists have him stopped this. The patient has been on oral antidiabetic diuretics at home. He had a pending EKG and echo later in the week which we will be doing inpatient. The patient denies any shortness a breath or chest pain. He does have leg edema. His blood pressures range in 170-190 range with very occasional systolics of 120. S: His leg edema is improved today, and his breathing is better. He was off from oxygen. He has really no other complaints His Cr is rising today up to 2.8. Ultrasound performed and was unrmarkable. Now will trial holding home chlorthalidone. Exam Vital Signs (past 8 hours): - 08/11/24 12:00 08/11/24 12:11 08/11/24 16:00 Temperature 96.9 F L 97.9 F Pulse Rate 60 85 60 Respiratory Rate 16 19 Blood Pressure 166/47 H 160/85 H 164/52 H Pulse Oximetry 98 97 Oxygen Flow Rate 0 Oxygen Delivery Method Room Air Oxygen Flow Rate 0 Narrative Exam Narrative: NAD, alert and oriented. Fluent speech. Lungs are clear, normal rate and effort. Heart is regular, no murmur gallop or rub. Abdomen is soft, non distended. Extremities are with 0-1+ edema. Objective Labs 08/10/24 09:09 08/11/24 08:55 Labs: Laboratory Results - last 24 hr 08/11/24 08:55 Sodium 138 Potassium 4.4 Chloride 105 Carbon Dioxide 19 L BUN 76 H Creatinine 2.82 H Estimated GFR 22 L BUN/Creatinine Ratio 27.0 H Glucose 136 H Calcium 9.2 PFSH Medical History Diabetes Hypertension Surgical History Knee joint replacement status H/O knee surgery Social History household members: spouse and children Smoking Status: Former smoker alcohol intake: former Assessment & Plan Assessment & Plan narrative: 1. Hypertensive urgency, present on admission and improved. - likely causing CHF exacerbation - Continue Coreg 25 mg bid - Norvasc 5 mg bid - Chlorthalidone 25 mg daily will have to hold today with worsening renal function Cr up to 2.8. - hydralazine 25 mg qid - stop prn hydralazine - consider change to nifedipine instead of hydralazine and norvasc. 2. Acute diastolic heart failure, present on admission and improved -now holding lasix due to worsening Cr, but he is not hypoxic and has no LE edema today. 3. Hyperkalemia, present on admission and improving. - Reviewed nephrology notes, baseline creatinine - monitored electrolytes - had Lokelma x 1 4. Acute kidney injury on chronic kidney disease, present on admission and active. -Holding lasix 08/08 and monitor Cr. Up to 2.8 - baseline Cr likely 1.9 - 2.0. Reviewed outside nephrology notes today. PLAN: Held diuresis, now will hold home chlorthalidone Renal ultrasound today unremarkable. He is asymptomatic. If Cr starts to improve he can likely discharge home. Full code. DVT prophylaxis - heparin Time-Based Coding :: [TOTAL MINUTES] spent with patient and on the chart (including review of chart, obtaining history, exam, reviewing outside data, placing orders, documenting exam and treatment plan, and counseling patient) on [DATE].
[2024-08-11] MEDS: hydrOXYzine HCL 25 MG TABLET PO (20:24)
[2024-08-12] VITALS (8 sets, daily range): BP systolic 145–186; BP diastolic 51–78; PULSE 52–72; RESP 16–18; TEMP 35.9–36.3; O2SAT 96–98
[2024-08-12] MEDS: HYDRALAZINE 25 MG TABLET PO ×3 (00:32→12:08)
[2024-08-12] MEDS: ACETAMINOPHEN 325 MG TABLET 650 MG PO ×2 (06:45→11:12)
[2024-08-12] MEDS: hydrOXYzine HCL 25 MG TABLET PO (06:45)
[2024-08-12 07:34] LABS: BUN Creatinine Ratio 28.4 (6-22); Blood Urea Nitrogen 73 mg/dL (9-20); Calcium 9.1 mg/dL (8.4-10.2); Carbon Dioxide 18 mmol/L (22-32); Chloride 106 mmol/L (98-107); Estimated Glomerular Filt Rate 24 mL/min (>60); Glucose 137 mg/dL (80-110); HEMOLYSIS < 15 (0-50); Potassium 4.8 mmol/L (3.4-5.1); Sodium 135 mmol/L (137-145)
[2024-08-12] MEDS: AMLODIPINE 5 MG TABLET PO (08:06)
[2024-08-12] MEDS: HEPARIN 5,000 UNIT/ML VIAL 5000 UNIT SUBCUT (08:07)
[2024-08-12] MEDS: SODIUM CHLORIDE 0.9% FLUSH 10 ML IV (08:07)
--- NOTE | 2024-08-12 08:21 | PM.DS.1 ---
History of Present Illness History of Present Illness Date Patient Seen: 08/12/24 Time Patient Seen: 08:21 Chief complaint: Pain in R Calf, Can't Walk On It Narrative: Per admitting provider: From night doctor: 83 y/o with PMH of HTN and CHF, came to ED complaining on b/l lower leg swelling and pain, more on the right. His SBP was 200 ~ 250 for the entire ED visit. He denies chest pain but has exertional dyspnea. He doesn't know his medications. Admitted with hypertensive urgency, CHF exacerbation. S: He recently started seeing Nephrology. He was taking clonidine transdermal and did not feel very good when he escalated this to a higher dose. He was nephrologists have him stopped this. The patient has been on oral antidiabetic diuretics at home. He had a pending EKG and echo later in the week which we will be doing inpatient. The patient denies any shortness a breath or chest pain. He does have leg edema. His blood pressures range in 170-190 range with very occasional systolics of 120. Discharge Providers Provider Date of admission: 08/08/24 10:12 Discharge Date: 08/12/24 Consults: 08/07/24 09:00 Consult to Dietitian, Adult Routine Comment: Reason For Exam: HF, recent weight gain 08/07/24 12:09 Consult to Physical Therapy Evaluate & Treat Comment: Physician Instructions: Evaluate and Treat 08/08/24 14:17 Consult to Occupational Therapy Evaluate & Treat Comment: Physician Instructions: Evaluate and treat Discharge provider: Buddy Valadez DO Summary Hospital Course Discharge Diagnosis: 1. Hypertensive urgency, present on admission and improved. 2. Acute diastolic heart failure, present on admission and improved 3. Hyperkalemia, present on admission and resolved 4. Acute kidney injury on chronic kidney disease, present on admission and active. Hospital Course: This is an 83-year-old male with a past medical history of CKD who was admitted with acute diastolic heart failure. His shortness of breath and lower extremity edema improved quite quickly with diuresis, however his creatinine started to trend up. His chlorthalidone was subsequently held, renal ultrasound showed no hydronephrosis, and the exact etiology of his JAMAL is not entirely clear but may have been due to over-diuresis. The patient felt well with no ongoing symptoms, and was discharged when his creatinine had improved to 2.5 on the day of discharge from 2.8 the previous day. His baseline appears to be between 1.9 and 2 based on review of his outpatient Nephrology notes. I did ask the patient to hold chlorthalidone on discharge due to his JAMAL, though he can resume this should he develop lower extremity edema again or dyspnea on exertion. He was advised to follow his daily weights and keep track of this home, as well as monitor his blood pressure, though at the time of discharge he was fairly adequately controlled with a blood pressure of 145/51. Time Spent with Patient Time spent: Greater than 30 minutes Exam Vital Signs (past 8 hours): - 08/12/24 00:32 08/12/24 01:10 08/12/24 06:00 Temperature 97.3 F L Pulse Rate 58 L 72 61 Respiratory Rate 18 Blood Pressure 171/64 H 160/78 H 186/51 H Pulse Oximetry 96 Oxygen Flow Rate 0 08/12/24 06:05 08/12/24 06:42 08/12/24 08:00 Temperature 96.7 F L Pulse Rate 66 62 62 Respiratory Rate 16 Blood Pressure 186/51 H 175/68 H 178/62 H Pulse Oximetry 98 Oxygen Flow Rate 0 Oxygen Delivery Method Room Air Oxygen Flow Rate 0 Narrative Exam Narrative: NAD, alert and oriented. Fluent speech. Lungs are clear, normal rate and effort. Heart is regular, no murmur gallop or rub. Abdomen is soft, non distended. Extremities are with without edema. Objective Labs 08/10/24 09:09 08/12/24 07:17 Labs: Laboratory Results - last 24 hr 08/11/24 08/12/24 08:55 07:17 Sodium 138 135 L Potassium 4.4 4.8 Chloride 105 106 Carbon Dioxide 19 L 18 L BUN 76 H 73 H Creatinine 2.82 H 2.57 H Estimated GFR 22 L 24 L BUN/Creatinine Ratio 27.0 H 28.4 H Glucose 136 H 137 H Calcium 9.2 9.1 PFSH Medical History Diabetes Hypertension Surgical History Knee joint replacement status H/O knee surgery Social History household members: spouse and children Smoking Status: Former smoker alcohol intake: former Discharge Plan Discharge Plan Patient Disposition: Home Health Service Provider Discharge Comment: You were admitted to the hospital with fluid overload and mild kidney dysfunction. Kidney function has remained stable. Continue to follow up with nephrology. Please follow up with PCP or kidney doctor in the next 1-2 weeks to recheck BP and labs (ideally as soon as possible / next week). For now hold chlorthalidone. You can restart this medication if you begin to develop leg swelling or mild shortness of breath again. Try to weigh yourself daily to track fluid weight. Discharge orders & Medications Prescriptions: Continued hydralazine 25 mg tablet 25 mg PO 4XD amlodipine 5 mg tablet 5 mg PO BID carvedilol 25 mg tablet 25 mg PO BID Discontinued chlorthalidone 25 mg tablet 25 mg PO DAILY Diet/Activity/Treatments Diet: Diet as Tolerated and Low-sodium Activity: As tolerated, no restrictions Visit Report/Discharge Packet Stand Alone Forms: Patient Portal/API, Stroke Signs & Symptoms, Patient Portal/API/Survey
--- NOTE | 2024-08-12 12:54 | CM.DPC ---
I met with patient today to discss IMM information. Patient said he was happy with his discharge plan. I called and left a message for patient's daughter Radha at 11:!!to notify her that patient was ready to be brought home. I called again at 12:50 and spoke to Radha, she said patient's other daughter Delfina was in route to come pick the patient up. I notified Cheryl MADISON that patient's family coming soon to take him home. I called [facility] and left a message notifying that patient is discharging today and notified them fax is coming. I faxed them a face sheet, discharge summary, and PT/OT noted to [facility].
== END 2024-08-12 13:49 | disposition home health service (06) | DRG 291 ==
LOC: ED 19:30 → AC 08-07 00:18
PROVIDERS: Hospitalist; Internal Medicine; Admitting Provider Internal Medicine; Emergency Provider Emergency Medicine; Referring Provider Emergency Medicine; Visit Provider Internal Medicine
DX: I13.0 Hypertensive heart and chronic kidney disease with heart failure and stage 1 through stage 4 chronic kidney disease, or unspecified chronic kidney disease (principal); I50.33 Acute on chronic diastolic (congestive) heart failure; N17.9 Acute kidney failure, unspecified; I16.0 Hypertensive urgency; N18.9 Chronic kidney disease, unspecified; E87.5 Hyperkalemia; R00.1 Bradycardia, unspecified; Z87.891 Personal history of nicotine dependence
CPT/HCPCS: 36415; 51798; 71045; 76770; 80048; 80053; 81003; 81015; 82550; 83036; 83690; 83735; 83880; 84484; 85025; 85027; 93005; 93041; 93306; 96374; 97116; 97129; 97162; 97166; 97530; 97535; 99284; 99291; G0378; A9270; J0360; J1644; J1940